=== PATIENT | male | born 1940 | race Caucasian/White ===

== ENCOUNTER 2018-05-24 17:26 | Inpatient (IN) | payer MEDICARE ==
[2018-05-24 18:22] LABS: #Lymphocytes 0.9 thou/uL (1.20-3.40); #Monocytes 0.1 thou/uL (0.11-0.59); #Neutrophils 1.1 thou/uL (1.40-6.50); %Basophils 1.3 % (0.0-1.0); %Eosinophils 2.1 % (0.0-10.0); %Lymphocytes 40.8 % (21.0-51.0); %Monocytes 3.8 % (0.0-10.0); %Neutrophils 52.1 % (42.0-75.0); Hemoglobin 9.6 g/dL (14.0-18.0); Mean Corpuscular HGB CONC 33.3 g/dL (32.0-36.0); Mean Corpuscular Hemoglobin 35.1 pg (27.0-31.0); Mean Platelet Volume 10.5 fL (7.4-10.4); Platelet Count 86 thou/uL (130-400); RBC Distribution Width 14.2 % (11.5-14.5); Red Blood Cell (RBC) Count 2.73 mill/uL (4.70-6.10); White Blood Cell (WBC) Count 2.2 thou/uL (4.8-10.8)
--- NOTE | 2018-05-24 18:23 | RAD ---
CHEST ONE VIEW 05/24/18 HISTORY: Cough. COMPARISON: Radiograph 01/16/18. FINDINGS: Heart size is enlarged. AICD/spacer is similar. Mild pulmonary venous congestion. No pneumothorax. IMPRESSION: Cardiomegaly with mild pulmonary venous congestion. POS: [facility]
[2018-05-24 18:38] LABS: ALT (SGPT) 50 U/L (8-55); AST (SGOT) 55 U/L (5-34); Albumin 3.2 g/dL (3.4-4.8); Alkaline Phosphatase 280 U/L (40-150); Anion Gap 14 mmol/L (10-20); BUN (Urea Nitrogen) 53 mg/dL (8.4-25.7); Bilirubin, Total 0.7 mg/dL (0.2-1.2); Calc. Creatinine Clearance 0 mL/min (70-130); Calcium 8.5 mg/dL (7.8-10.44); Carbon Dioxide 23 mmol/L (23-31); Chloride 104 mmol/L (98-107); Estimated GFR-MDRD 29; Globulin 2.3 g/dL (2.4-3.5); Glucose 143 mg/dL (83-110); Potassium 4.2 mmol/L (3.5-5.1); Protein, Total 5.5 g/dL (5.8-8.1); Sodium 137 mmol/L (136-145)
[2018-05-24 18:44] LABS: MDiff Complete? YES; Macrocytosis SLIGHT = 6-15 cells (100X) (0-5/hpf); Ovalocytes SLIGHT = 2-5 cells (100X) (0-1/hpf); Platelet Morphology Comment Appears Decreased; Polychromasia SLIGHT = 2-3 cells (100X) (0-2/hpf)
[2018-05-24 19:07] LABS: Bilirubin Negative (Negative); Blood, Urine Small (Negative); Clarity CLEAR (Clear); Glucose, Urine (Dipstick) Negative (Negative); Leukocyte Negative (Negative); Nitrite Negative (Negative); Protein, Urine (Dipstick) 300 mg/dL (Neg-Trace); Specific Gravity, Urine 1.016 (1.002-1.036); Urobilinogen 0.2 mg/dL (0.2-1.0); pH, Urine 5.5 (5.0-9.0)
[2018-05-24 19:10] LABS: Bacteria/HPF None Seen HPF (None Seen); Hyaline Casts/LPF 4-6 HYALINE CAST LPF (0-3 Hyaline); Pathc Cast-AUWi Flag 1.16 (0-2.49); Squamous Epithelial None Seen HPF (0-3); WBC/HPF 0-3 HPF (0-3)
--- NOTE | 2018-05-24 19:10 | CT ---
HEAD CT WITHOUT CONTRAST: 05/24/18 HISTORY: Weakness and altered mental status x3 days. Shortness of breath. Cough. Hypotension. COMPARISON: 10/04/16. FINDINGS: No parenchymal hemorrhage or extra-axial hematoma. No midline shift. Basilar cisterns are patent. Age appropriate brain volume. Cortical valera-white matter differentiation is preserved. No evidence of hydrocephalus. Minimal mucosal disease of the paranasal sinuses. Adequate mastoid air cell aeration. Intact calvarium. There is evidence of linear air attenuation in the soft tissues of the face and scalp, nonspecific. C orrelate for possible recent IV access. There is also nonspecific subcu air along the midline portion of the scalp and the soft tissues overlying the bridge of the nose. Correlate for possible soft tiss ue trauma. IMPRESSION: 1. No intracranial posttraumatic sequela. 2. Subcutaneous air as detailed above. Correlate for recent IV access versus trauma with associ ated laceration. POS: [facility]
[2018-05-24 19:15] LABS: CKMB 17.1 ng/mL (0-6.6)
--- NOTE | 2018-05-24 19:42 | PDOC.FPRHP ---
- History of Present Illness Chief Complaint: AMS & progressive weakness History of Present Illness: The patient is a 77YOM w/ a PMH significant for HTN, CHF, DMII, RA, and a fib who was brought to the ED by his due to progressively worsening weakness with associated confusion and hallucinations that began about 2 weeks ago. Per the patient's he has had increased weakness and fatigue for the last 2 weeks that has gotten significantly worse over the last 3-4 days. She reports that the patient has basically slept all day for the last few days and has had decreased PO intake as well. The patient reported that he has noticed that he has been unable to make his usual treck from the house to the garage to care for their dog without stopping and resting at least 5 times. The also reports that the patient has been periodically confused and periodically has visual hallucinations. The patient endorses that sometimes he is aware he is hallucinating and other times he is not. Lastly, the reports a cough that has gotten progressively worse over the last 2 weeks. The patient states it is non-productive but the says he is coughing more frequently now. The patient denied any fever/chills, recent hospitalizations, sick contacts, or chest pain. His also reports that he has received his flu and PNA vaccines but his Tdap is not up-to-date. ED Course: 3LNS, vancomycin, zosyn - Allergies/Adverse Reactions Allergies Allergy/AdvReac Type Severity Reaction Status Date / Time Sulfa (Sulfonamide Allergy Verified 05/24/18 21:36 Antibiotics) - Home Medications Medication Instructions Recorded Confirmed Type Furosemide [Lasix] 1 tab PO BID 08/10/14 05/24/18 History HumuLIN 70/30 [HumuLIN 70/30 Vial] 30 units SC QAM 08/10/14 05/24/18 History Multivitamin [Multivitamins] 1 tab PO DAILY 08/10/14 05/24/18 History [place]-3 Fatty Acids/Fish Oil [Fish 1 tab PO DAILY 08/10/14 05/24/18 History Oil 1,200 mg Softgel] Apixaban [Eliquis] 5 mg PO BID 05/27/15 05/24/18 History Carvedilol [Coreg] 12.5 mg PO BID-WM 10/04/16 05/24/18 History HumuLIN 70/30 [HumuLIN 70/30 Vial] 0 unit SC HS 10/04/16 05/24/18 History Aspirin [Ecotrin] 81 mg PO DAILY 05/24/18 05/24/18 History Gabapentin 300 mg PO TID 05/24/18 05/24/18 History Potassium Chloride 10 meq PO DAILY 05/24/18 05/24/18 History azaTHIOprine 50 mg PO BID 05/24/18 05/24/18 History predniSONE 2.5 mg PO QAM-WM 05/24/18 05/24/18 History - History PMHx: HTN, CHF, atrial fibrillation, DMII, RA, CM s/p defibrillator placement, CKD III PSHx: defibrillator placement, 3V CABG, left femur fracture repair, R shoulder arthroscopy FHx: Grandfather- CVA Grandmother- DMII Social: Lives at home with his . No tobacco, EtOH, or drug use. - Review of Systems General: reports: weight/appetite/sleep changes, fatigue. denies: fever/chills Eyes: denies: eye pain, vision changes ENT: reports: rhinorrhea, other (sore throat). denies: nasal congestion Respiratory: reports: cough, shortness of breath. denies: congestion Cardiovascular: reports: edema. denies: chest pain, palpitation Gastrointestinal: denies: nausea, vomiting, diarrhea, constipation, abdominal pain Genitourinary: denies: incontinence, dysuria Skin: denies: rashes, itching Musculoskeletal: reports: pain, arthritis/arthralgias Neurological: reports: numbness (in legs from neuropathy). denies: syncope Psychological: denies: anxiety, depression - Vital signs BP: 98/61 HR: 75 RR: 28 Tmax: 98F Pox: 99% on RA Wt: 76 kg - Physical Exam Constitutional: NAD, awake, alert and oriented (A&O x 2, oriented to person and place) HEENT: normocephalic and atraumatic, PERRLA, grossly normal vision, grossly normal hearing, oropharynx clear, other (conjunctival injection with yellow crusting around B/L eyes & slightly dry mucus membranes) Neck: supple, FROM Heart: RRR, normal S1/S2, no murmurs/rubs/gallops, pulses present, other (1+ pitting edema in LEs L>R) Lungs: no wheezing, no retractions, other (slightly tachypnic on exam & moving air well on inspiration, increased work on expiration w/ deep breaths) Abdomen: soft, non-tender, bowel sounds present Musculoskeletal: normal structure, ROM grossly normal Neurological: no focal deficit, CN II-XII intact Skin: no rash/lesions, no jaundice Heme/Lymphatic: no petechia, other (bruising on left arm) Psychiatric: normal mood and affect, good judgment and insight, other (slightly impaired recent and remote memory) FMR H&P: Results - Labs Result Diagrams: 05/24/18 17:42 05/24/18 17:42 Lab results: WBC 2.2 thou/uL (4.8-10.8) L 05/24/18 17:42 Hgb 9.6 g/dL (14.0-18.0) L 05/24/18 17:42 Hct 28.8 % (42.0-52.0) L 05/24/18 17:42 MCV 105.0 fL (78.0-98.0) H 05/24/18 17:42 Plt Count 86 thou/uL (130-400) L 05/24/18 17:42 Neutrophils % 52.1 % (42.0-75.0) 05/24/18 17:42 Sodium 137 mmol/L (136-145) 05/24/18 17:42 Potassium 4.2 mmol/L (3.5-5.1) 05/24/18 17:42 Chloride 104 mmol/L (98-107) 05/24/18 17:42 Carbon Dioxide 23 mmol/L (23-31) 05/24/18 17:42 BUN 53 mg/dL (8.4-25.7) H 05/24/18 17:42 Creatinine 2.20 mg/dL (0.7-1.3) H 05/24/18 17:42 Glucose 143 mg/dL (83-110) H 05/24/18 17:42 Lactic Acid 1.5 mmol/L (0.5-2.2) 05/24/18 17:42 Calcium 8.5 mg/dL (7.8-10.44) 05/24/18 17:42 Total Bilirubin 0.7 mg/dL (0.2-1.2) 05/24/18 17:42 AST 55 U/L (5-34) H 05/24/18 17:42 ALT 50 U/L (8-55) 05/24/18 17:42 Alkaline Phosphatase 280 U/L (40-150) H 05/24/18 17:42 CK-MB (CK-2) 17.1 ng/mL (0-6.6) H* 05/24/18 17:42 B-Natriuretic Peptide 2504.3 pg/mL (0-100) H 05/24/18 17:42 Serum Total Protein 5.5 g/dL (5.8-8.1) L 05/24/18 17:42 Albumin 3.2 g/dL (3.4-4.8) L 05/24/18 17:42 Urine Ketones Negative mg/dL (Negative) 05/24/18 18:24 Urine Blood Small (Negative) H 05/24/18 18:24 Urine Nitrite Negative (Negative) 05/24/18 18:24 Ur Leukocyte Esterase Negative (Negative) 05/24/18 18:24 Urine RBC 4-6 HPF (0-3) 05/24/18 18:24 Urine WBC 0-3 HPF (0-3) 05/24/18 18:24 Ur Squamous Epith Cells None Seen HPF (0-3) 05/24/18 18:24 Urine Bacteria None Seen HPF (None Seen) 05/24/18 18:24 FMR H&P: A/P - Problem List (1) Pancytopenia Current Visit: Yes Status: Acute Code(s): D61.818 - OTHER PANCYTOPENIA (2) Encephalopathy acute Current Visit: Yes Status: Acute Code(s): G93.40 - ENCEPHALOPATHY, UNSPECIFIED (3) CHF (congestive heart failure) Current Visit: Yes Status: Acute Code(s): I50.9 - HEART FAILURE, UNSPECIFIED (4) Atrial fibrillation Current Visit: No Status: Chronic Code(s): I48.91 - UNSPECIFIED ATRIAL FIBRILLATION (5) CAD (coronary artery disease) Current Visit: No Status: Chronic Code(s): I25.10 - ATHSCL HEART DISEASE OF [place] CORONARY ARTERY W/O ANG PCTRS (6) CKD (chronic kidney disease) Current Visit: No Status: Chronic Code(s): N18.9 - CHRONIC KIDNEY DISEASE, UNSPECIFIED (7) Diabetes mellitus Current Visit: No Status: Chronic Code(s): E11.9 - TYPE 2 DIABETES MELLITUS WITHOUT COMPLICATIONS (8) HTN (hypertension) Current Visit: No Status: Chronic Code(s): I10 - ESSENTIAL (PRIMARY) HYPERTENSION (9) Rheumatoid arthritis Current Visit: No Status: Chronic Code(s): M06.9 - RHEUMATOID ARTHRITIS, UNSPECIFIED - Plan Acute Encephalopathy - DDx includes sepsis/infection vs metabolic derangements vs delirium vs decreased cardiac output - Will check a TSH, UDS/SDS, B1, & folate - Infection workup pending including blood and urine cultures & flu swab. Will also trend procal & continue BS IV Abx for now & tailor PRN - Will give melatonin to help with sleep which may improve any delirium component Acute cough - CXR negative for any focal consolidation so PNA less likely at this stage; however, AZA definitely increases risk of developing an infection. - Will check procal to assess for likelihood of bacterial respiratory infection but continue IV abx in the meantime. Pancytopenia - Most likely related to azathioprine that the patient started ~ 1 month ago - Will hold AZA & continue to monitor. - Will hold anticoagulation for now per cards recs TERE on CKD stage III - Cr increased from labs obtained from 05/17. - likely related to volume depletion from decreased PO intake; will continue to trend w/ AM BMPs - Follows with [facility] Gregory outpatient for CKD stage 3 Elevated troponin - EKG does not suggest ischemia; will repeat EKG. - Likely 2/2 demand ischemia per cards. Will continue to trend. - Patient follows w/ Dr. Dos Santos who was consulted from the ED. Will see in the AM. CAD s/p 3V CABG - Per cards last cath 6 months ago showed diffuse disease but no surgical intervention done. - Wi;ll continue medical management. Rheumatoid arthritis - Aware, will hold azathioprine 2/2 pancytopenia. Diabetes Mellitus - Aware, patient on 70/30 at home. Will resume home regimen while in the hospital. - ACHS accuchecks & hypoglycemia protocol. Chronic diarrhea - Will consider stool studies. Dispo: Will admit to IMCU overnight for close monitoring of BP. Possibly transfer to floor tomorrow. LOS > 2 midnights. Diet: HH, CC Abx: Vancomycin, zosyn, levaquin DVT PPx: none (thrombocytopenia) GI PPx: none CODE STATUS: DNAR FMR H&P: Upper Level - Pertinent history oCrby Maynard is a 77 year old male on immunosuppresant medication who presents to the ED with 3 day history of confusion, cough/congestoin, and weakness and altered mental status. She is unable to identify any acute changes. No new sleep issues or changes in environment. Of note, patient started on Azathioprine 1 month ago for rheumatoid arthritis. Pt also reports diarrhea for the past several weeks. Dr. Dos Santos was consulted in the emergency department regarding pt's elevated troponin and per ED physician, Dr. Dos Santos believes this is more likely related to troponin leak and recommended treating presumptive sepsis. In ED, pt was noted to be hypotensives to 70s which improved after 3L NS. He was started on Vanc and Zosyn. Blood and urine cultures were obtained. - Pertinent findings Exam: General - Alert and oriented to person and place Heart - regular rate and rhythm, no murmurs, rubs, or gallops. Lungs - clear to auscultation bilaterally. Abdomen - soft, non-tender Extremities - bilateral lower extremity 1 + pitting edema. Neuro: CN II-XII intact grossly; no focal sensory or motor deficits; Normal ham stringer strenght; No dysdiadokinesiss Labs as above. - Plan Date/Time: 05/24/181941 IMalou, have evaluated this patient and agree with findings/plan as outlined by consultant internship resident. Pertinent changes/additions are listed here. Acute Encephalopathy - differentials include: infection, metabolic derangement, delirium, decreased cardiac output. - will check TSH, UDS/SDS, B1, folate - infection workup pending: including cultures, flu, procal. Acute cough - unlikely pneumonia, given negative CXR, Will check procal to assess for likelihood of bacterial respiratory infection Pancytopenia - likely related to azathioprine. - mild leukopenia with ANC of 1146. - with thrombocytopenia, no evidence of bleeding, will continue to monitor. Acute on chronic kidney injury - Cr. increased from labs obtained from 05/17. - likely related to volume depletion; will repeat BMP in Am. - Pt sees Justin Gregory outpatient for CKD stage 3 Elevated troponin -EKG does not suggest ischemia; will repeat EKG. -will trend troponins - cardiology consulted. Coronary artery disease - s/p CABG; diffuse disease - continue medical management. Congestive heart failure. -will continue home meds. - fluid restriction, HH diet - Pt's states that he had a normal Echo in 01/2018. Rheumatoid arthritis - will hold azathioprine. Diabetes Mellitus - resume home regimen - Will check A1C. Chronic diarrhea - consider stool studies. Addendum - Attending - Attending Attestation Date/Time: 05/24/18 2263 I personally evaluated the patient and discussed the management with Dr. Clinton/ Lashawn. I agree with the History, Examination, Assessment and Plan documented above with any addition or exceptions noted below. Patient with history of RA currently on immunosuppression here with several weeks of increasing fatigue, weakness, and malaise. Family also reports some intermittent confusion and hallucinations. He also reports cough and rhinorrhea , but denies increased shortness of breath, productive sputum, abdominal pain, nausea, vomiting, diarrhea. He does endorse some R shoulder pain which has been ongoing for the last few weeks. On exam, patient initially hypotensive but improved with 3L of IVF. Currently, MAP in 70s. He is not tachycardic. He is noted to have cough but otherwise lungs are clear. Exam non focal. Labs show increased troponin thought secondary to troponin leak and demand ischemia (per Cardiology consult from ER). Lactic acid normal. He is borderline pancytopenic, and no leukocytosis or neutrophilia. CXR does not reveal major consolidation or infiltrate, possibly mild congestion. CT brain nothing acute. Patient will be admitted to IMCU overnight for hypotension with concern for sepsis. Check PCT and trend. Start on broad spectrum abx and await culture results. Flu swab. He has been well fluid resuscitation but monitor with I/O and renal values. Patient is DNAR as discussed with patient and family. Further mgmt per clinical course.
[2018-05-24] MEDS ORDERED: Piperacillin/Tazobactam 4.5 GM VIAL ONE (20:29)
[2018-05-24] MEDS ORDERED: Dextrose 5% in Water 1,000 ML IV PRN (20:33)
[2018-05-24] MEDS ORDERED: Dextrose 50% Abboject 50 ML SYRINGE SLOW IVP PRN (20:33)
[2018-05-24] MEDS ORDERED: Ondansetron ODT 4 MG TAB PO PRN (20:33)
[2018-05-24 21:07] LABS: Critical Call Chem Troponin I DECREASED
[2018-05-25 00:35] LABS: Acetaminophen Less than 6.0 mcg/mL (10.0-30.0); Alcohol Less than 10 mg/dL (Less than 10); Salicylate Less than 8.0 mg/dL (15.0-30.0)
[2018-05-25 01:13] LABS: CKMB 12.8 ng/mL (0-6.6); Critical Call CKMB RESULT DECREASING
[2018-05-25] MEDS: Piperacillin/Tazobactam 2.25 GM in Sodium Chloride 0.9% 100 ML IVPB SCH ×5 (01:20→23:20)
[2018-05-25] MEDS: Melatonin 3 MG TAB PO PRN ×2 (01:50→21:10)
[2018-05-25 02:43] LABS: Amphetamine Not Detected (NotDetected); Barbiturates Screen Not Detected (NotDetected); Benzodiazepine Screen Not Detected (NotDetected); Cocaine Metabolite Screen Not Detected (NotDetected); Medtox Control Line Valid? VALID (VALID); Medtox Reader # READER 1; Methadone Not Detected (NotDetected); Methamphetamine Not Detected (NotDetected); Opiate Screen Not Detected (NotDetected); Oxycodone Screen Not Detected (NotDetected); Phencyclidine (PCP) Not Detected (NotDetected); THC/Cannabinoid Screen Not Detected (NotDetected); Tricyclic Screen Not Detected (NotDetected)
[2018-05-25 04:16] LABS: #Monocytes 0.2 thou/uL (0.11-0.59); #Neutrophils 1.2 thou/uL (1.40-6.50); %Basophils 0.3 % (0.0-1.0); %Lymphocytes 39.8 % (21.0-51.0); %Monocytes 8.2 % (0.0-10.0); %Neutrophils 49.7 % (42.0-75.0); Mean Corpuscular HGB CONC 33.4 g/dL (32.0-36.0); Mean Corpuscular Hemoglobin 35.3 pg (27.0-31.0); Platelet Count 81 thou/uL (130-400); RBC Distribution Width 14.3 % (11.5-14.5); Red Blood Cell (RBC) Count 2.55 mill/uL (4.70-6.10); White Blood Cell (WBC) Count 2.5 thou/uL (4.8-10.8)
[2018-05-25 04:29] LABS: Anion Gap 15 mmol/L (10-20); BUN (Urea Nitrogen) 53 mg/dL (8.4-25.7); Calc. Creatinine Clearance 28 mL/min (70-130); Calcium 8.2 mg/dL (7.8-10.44); Carbon Dioxide 22 mmol/L (23-31); Chloride 106 mmol/L (98-107); Estimated GFR-MDRD 27; Glucose 177 mg/dL (83-110); Potassium 4.1 mmol/L (3.5-5.1); Sodium 139 mmol/L (136-145)
[2018-05-25 05:37] LABS: Folate (Folic Acid) 16.8 ng/mL (7.0-31.4)
--- NOTE | 2018-05-25 07:33 | PDOC.FM ---
- Subjective Subjective: A&Ox1 today, thinks he's in [facility] and the year is 2000. He denies sx. states he's had sx of confusion since before Miguelina. States he's been sleeping more the past week. States he's had visual hallucinations since before Miguelina as well. VSS. Afebrile. - Objective Vital Signs & Weight: Vital Signs (12 hours) Temp Resp Pulse Ox 05/25/18 04:00 20 05/25/18 03:47 99.0 F 05/25/18 00:00 20 05/24/18 23:35 99.8 F H 05/24/18 23:00 18 05/24/18 21:30 98 05/24/18 21:04 20 05/24/18 21:00 98.3 F Weight Weight 76.26 kg Most Recent Monitor Data Heart Rate from ECG 81 NIBP 111/65 NIBP BP-Mean 80 Respiration from ECG 25 SpO2 98 I&O: 05/24/18 05/25/18 05/26/18 06:59 06:59 06:59 Intake Total 740 Output Total 125 Balance 615 Result Diagrams: 05/25/18 03:20 05/25/18 03:20 Phys Exam - Physical Examination Constitutional: NAD Respiratory: no wheezing, no rales, clear to auscultation bilateral decreased breath sounds bilaterally Cardiovascular: no significant murmur Gastrointestinal: soft, non-tender Musculoskeletal: no edema, pulses present Neurological: non-focal, normal sensation Deviation from normal: a&ox1 Skin: no rash Dx/Plan (1) CHF (congestive heart failure) Code(s): I50.9 - HEART FAILURE, UNSPECIFIED Status: Acute (2) Encephalopathy acute Code(s): G93.40 - ENCEPHALOPATHY, UNSPECIFIED Status: Acute (3) Pancytopenia Code(s): D61.818 - OTHER PANCYTOPENIA Status: Acute (4) Atrial fibrillation Code(s): I48.91 - UNSPECIFIED ATRIAL FIBRILLATION Status: Chronic (5) CAD (coronary artery disease) Code(s): I25.10 - ATHSCL HEART DISEASE OF [place] CORONARY ARTERY W/O ANG PCTRS Status: Chronic (6) CKD (chronic kidney disease) Code(s): N18.9 - CHRONIC KIDNEY DISEASE, UNSPECIFIED Status: Chronic (7) Diabetes mellitus Code(s): E11.9 - TYPE 2 DIABETES MELLITUS WITHOUT COMPLICATIONS Status: Chronic (8) HTN (hypertension) Code(s): I10 - ESSENTIAL (PRIMARY) HYPERTENSION Status: Chronic (9) Rheumatoid arthritis Code(s): M06.9 - RHEUMATOID ARTHRITIS, UNSPECIFIED Status: Chronic (10) Hypokalemia Code(s): E87.6 - HYPOKALEMIA Status: Resolved - Plan Plan: Acute on chronic Encephalopathy -Sx for several months of confusion and VH, acute decline more recently -DDX: Dementia (vascular vs parkinsons vs alz) vs infection (although cannot find a source) vs acute on chronic CHF/hypoxemia Sepsis without a source- -Will continue vanc and zosyn until cx negative X48 hours Hypotension- -hypotension resolved, likely chronic low nl bp 2/2 cardiogenic etiology (hx of CABG 3V and CHF) NSTEMI 2/2 demand ischemia- -elevated trops and CK-MB X 3, cards on board -will follow recs -no chest pain -consider repeating EKG -lovenox not started as pt is thrombocytopenic Acute cough - CXR negative for any focal consolidation so PNA less likely at this stage; however, AZA definitely increases risk of developing an infection. - Continue to hold AZA, and will recheck procal Pancytopenia - Most likely related to azathioprine that the patient started ~ 1 month ago - Will hold AZA & continue to monitor. - Will hold anticoagulation for now per cards recs TERE on CKD stage III - Cr increased from labs obtained from 05/17. - likely related to volume depletion from decreased PO intake; will continue to trend w/ AM BMPs - Follows with [facility] Gregory outpatient for CKD stage 3 - will provide low maintenance fluids as TERE slightly worse this am (100 ml/hr LR) CAD s/p 3V CABG - Per cards last cath 6 months ago showed diffuse disease but no surgical intervention done. - Wi;ll continue medical management. Rheumatoid arthritis - Aware, will hold azathioprine 2/2 pancytopenia. Diabetes Mellitus - Aware, patient on 70/30 at home. Will resume home regimen while in the hospital. - ACHS accuchecks & hypoglycemia protocol. Chronic diarrhea - Will consider stool studies. Dispo: Will admit to IMCU overnight for close monitoring of BP. Possibly transfer to floor tomorrow. LOS > 2 midnights. Diet: HH, CC Abx: Vancomycin, zosyn DVT PPx: none (thrombocytopenia) GI PPx: none CODE STATUS: DNAR Addendum - Attending - Attending Attestation Date/Time: 05/25/18 0899 I personally evaluated the patient and discussed the management with Dr. Clark Mills. I agree with the History, Examination, Assessment and Plan documented above with any addition or exceptions noted below. Patient here with hypotension and concern for sepsis. He is doing better this morning. Reports feeling much better. Denies complaints. He is on broad spectrum abx and IVF. Cultures pending. Labs stable. His PCT did uptrend a little, continue to monitor. Consider xfer out of IMCU if BP stable through the AM. His trops are pretty significantly elevated, suspect demand ischemia and troponin leak, as does cardiology. They have been consulted but anticipate mgmt of his BP over more invasive studies. No chest pain and no EKG changes. History of CAD. Consider AM cortisol level for the AM. Other labs stable, will continue current mgmt for now.
[2018-05-25] MEDS ORDERED: HumuLIN 70/30 (300 UNITS/3 ML VIAL) SC SCH ×2 (09:00→21:00)
[2018-05-25] MEDS ORDERED: Lactated Ringer's 1,000 ML IV SCH (09:45)
[2018-05-25] MEDS: Aspirin 81 mg Enteric Coated Tablet PO SCH (10:07)
[2018-05-25] MEDS: predniSONE 5 MG TAB PO SCH (10:07)
[2018-05-25] MEDS: Fish Oil 1,000 MG CAP PO SCH (10:07)
[2018-05-25] MEDS: Gabapentin 300 MG CAP PO SCH ×3 (10:07→21:10)
[2018-05-25] MEDS: Potassium Chloride 10 MEQ TAB PO SCH (10:08)
[2018-05-25] MEDS: Multivitamin W/ Minerals 1 TAB PO SCH (10:08)
--- NOTE | 2018-05-25 11:32 | CON ---
DATE OF CONSULTATION: 05/25/2018 REASON FOR CONSULTATION: IMCU management. HISTORY OF PRESENT ILLNESS: The patient is a 77-year-old male, who was brought in yesterday from home with a month long history of altered mental status and progressive weakness. The patient is basically unable to provide history and his also is very sketchy with the history. According to history and physical, the patient has been sleeping all day long for the last several days. He has become weak when walking. He has had a cough and some congestion. PAST MEDICAL HISTORY: 1. Hypertension. 2. Congestive heart failure, systolic. 3. Atrial fibrillation. 4. Diabetes mellitus, type 2. 5. Rheumatoid arthritis, on immunosuppression. 6. Defibrillator placement. 7. Chronic kidney disease. PAST SURGICAL HISTORY: 1. Three-vessel CABG. 2. Left femur fracture repair. 3. Right shoulder arthroscopy. FAMILY MEDICAL HISTORY: Remarkable for stroke and diabetes mellitus. SOCIAL HISTORY: Nonsmoker. Does not consume alcohol. Does not use illicit drugs. MEDICATIONS: Prior to admission, these were reviewed and doses are listed on the chart. Of note, he is on: 1. Aspirin. 2. Humulin 70/30 insulin. 3. Prednisone. 4. Azathioprine. 5. Potassium chloride. 6. [place]-3 fatty acids. 7. Multivitamin. 8. Gabapentin. 9. Furosemide. 10. Carvedilol. 11. Eliquis. His current inpatient medications include those with the exception that the azathioprine is being held and he is now receiving some antibiotic therapy. ALLERGIES: SULFA DRUGS. REVIEW OF SYSTEMS: Cannot be obtained secondary to the patient's altered mental status. PHYSICAL EXAMINATION: VITAL SIGNS: Temperature is 99.2 with a T-max of 99.8, pulse 79, blood pressure 108/63, and O2 saturation 94% on room air. GENERAL: He is lying in bed, in no distress. He is alert, not oriented to place or time, but is pleasant. HEENT: Pupils are reactive. Sclerae anicteric. Oropharynx clear. NECK: No adenopathy. No JVD. CARDIOVASCULAR: S1 and S2 irregularly irregular with a controlled rate. LUNGS: He has inspiratory crackles in the left base. ABDOMEN: Soft, nontender, and nondistended. EXTREMITIES: No clubbing, cyanosis, or edema. NEUROLOGIC: Nonfocal. SKIN: Various bruises over his arms. LABORATORY DATA: Sodium 139, potassium 4.1, chloride 106, CO2 of 22, BUN 53, creatinine 2.3, and glucose 177. White blood cell count 2.5, hemoglobin 9, hematocrit 26.9, and platelet count 81. His BNP level was elevated at 2504. His procalcitonin level was 0.7. IMAGING STUDIES: His chest x-ray demonstrates cardiomegaly. There is a left- sided defibrillator in place. I do not see any infiltrates on the x-ray. ASSESSMENT: The patient is presenting with altered mental status. Most common scenario here would be sepsis leading to this. Cannot rule out the possibility of concurrent systolic heart failure, although he looks clinically dry on his labs. RECOMMENDATIONS: 1. I agree with antibiotics. 2. Consider very judicious use of IV fluids as it could tip him over to heart failure. 3. Dr. Dos Santos has been consulted. 4. I would be happy to follow along with you. 70 min time was spent on this consultation. Of that time, greater than 50% was spent with the patient and/or on the patient's unit in the hospital. Job ID: [id number] [id number]
--- NOTE | 2018-05-25 12:21 | CON ---
DATE OF CONSULTATION: 05/25/2018 REASON FOR CONSULTATION: Elevated troponins. HISTORY OF PRESENT ILLNESS: Mr. Maynard is a very pleasant 77-year-old white gentleman, very well known to myself, who comes to the hospital for altered mental status and progressive weakness. He was brought in for this by his , and on initial evaluation, was found to have an elevated troponin, so Cardiology is being consulted for this. He denies any chest pain, tightness, or pressure. tells me he has not been having any chest pains either. He is still somewhat confused. No significant improvement has occurred since last night. He was hypotensive when he came in. He responded well to IV fluids. He does have a history of ischemic cardiomyopathy, previous bypass and most recent heart catheterization showed nonrevascularizable coronary artery disease. has noted some cough and congestion over last two weeks. PAST MEDICAL HISTORY: 1. Hypertension. 2. Ischemic cardiomyopathy with an EF at about 30% to 35%. 3. Paroxysmal atrial fibrillation. 4. Type 2 diabetes. 5. Rheumatoid arthritis. 6. AICD placement. 7. Chronic kidney disease. PAST SURGICAL HISTORY: 1. Three-vessel CABG. 2. Pacemaker placement, later upgrade to an AICD. 3. Left femur fracture repair. 4. Left shoulder repair. FAMILY HISTORY: Noncontributory. SOCIAL HISTORY: No alcohol, tobacco, or drugs. OUTPATIENT MEDICATIONS: Include 1. Aspirin. 2. Humulin insulin. 3. Prednisone. 4. Azathioprine, which is a new medicine for the last month. 5. Potassium chloride. 6. Wolverine-3 fish oil. 7. Multivitamins. 8. Gabapentin. 9. Furosemide. 10. Carvedilol. 11. Eliquis. ALLERGIES: SULFA DRUGS. REVIEW OF SYSTEMS: Unobtainable as the patient is altered still. PHYSICAL EXAMINATION: VITAL SIGNS: Temperature 99.2, pulse 79, respiratory rate 18, saturating 98% on room air, and blood pressure 108/63. GENERAL: Awake, alert, and oriented to person only, in no distress. HEENT: Normocephalic and atraumatic. NECK: Supple. LUNGS: Clear. CARDIOVASCULAR: S1 and S2. No S3 or S4. No murmurs. ABDOMEN: Soft. Positive bowel sounds. EXTREMITIES: No edema. SKIN: Warm and dry. LABORATORY DATA: Laboratory work was reviewed. CBC with a white count of 2.2, hemoglobin 9.6, hematocrit of 28, and platelet count of 86. Chemistry with BUN of 53, creatinine 2.3, troponin went from 18 down to 15, down to 13. BNP was 2504. TSH was normal. UA was unremarkable. Toxicology was negative. Influenza A and B were negative. Blood cultures negative to date. ASSESSMENT: 1. Altered mental status. 2. [id number] myocardial infarction. Likely demand ischemia from severe cardiomyopathy and severe coronary artery disease and his hypotension. Treat underlying condition. Blood pressure is better. He remains asymptomatic. 3. Pancytopenia. PLAN: 1. I would stop his IV fluids for now. He may have been a little volume down initially, but currently he is closer to euvolemic. We will stop IV fluids. I agree with IV antibiotics. 2. Agree with holding the azathioprine. 3. I would stay away from any medications that may alter mentation. 4. No plan for catheterization as he has nonrevascularizable coronary artery disease. 5. We will follow. Job ID: [id number]
[2018-05-25] MEDS: Vancomycin HCl 750 MG in Sodium Chloride 0.9% 250 ML 250 ML IVPB SCH (21:16)
[2018-05-26] MEDS: Piperacillin/Tazobactam 2.25 GM in Sodium Chloride 0.9% 100 ML IVPB SCH ×4 (05:57→23:41)
--- NOTE | 2018-05-26 06:50 | PDOC.FM ---
- Subjective Subjective: Hypoglycemic 58 this am, recheck 83 when I was in the room. He was not alert and oriented when I saw him. A&0x0. GCS 9 - Objective MAR Reviewed: Yes Vital Signs & Weight: Vital Signs (12 hours) Temp Pulse Ox 05/26/18 00:09 97.9 F 05/26/18 00:00 96 05/25/18 20:00 94 L 05/25/18 19:26 98.2 F Weight Weight 78.5 kg Most Recent Monitor Data Heart Rate from ECG 67 NIBP 125/63 NIBP BP-Mean 83 Respiration from ECG 22 SpO2 95 I&O: 05/24/18 05/25/18 05/26/18 06:59 06:59 06:59 Intake Total 740 1120 Output Total 125 150 Balance 615 970 Result Diagrams: 05/25/18 03:20 05/26/18 04:56 Phys Exam - Physical Examination A&O X 0; GCS 9 Respiratory: no wheezing rales; tachypnic Cardiovascular: RRR systolic murmur Gastrointestinal: soft, non-tender Musculoskeletal: no edema GCS9 Dx/Plan (1) NSTEMI (non-ST elevated myocardial infarction) Code(s): I21.4 - NON-ST ELEVATION (NSTEMI) MYOCARDIAL INFARCTION Status: Acute (2) Sepsis Code(s): A41.9 - SEPSIS, UNSPECIFIED ORGANISM Status: Acute Qualifiers: Sepsis type: methicillin resistant Staphylococcus aureus Qualified Code(s) : A41.02 - Sepsis due to Methicillin resistant Staphylococcus aureus (3) CHF (congestive heart failure) Code(s): I50.9 - HEART FAILURE, UNSPECIFIED Status: Acute (4) Encephalopathy acute Code(s): G93.40 - ENCEPHALOPATHY, UNSPECIFIED Status: Acute (5) Pancytopenia Code(s): D61.818 - OTHER PANCYTOPENIA Status: Acute (6) Atrial fibrillation Code(s): I48.91 - UNSPECIFIED ATRIAL FIBRILLATION Status: Chronic (7) CAD (coronary artery disease) Code(s): I25.10 - ATHSCL HEART DISEASE OF [place] CORONARY ARTERY W/O ANG PCTRS Status: Chronic (8) CKD (chronic kidney disease) Code(s): N18.9 - CHRONIC KIDNEY DISEASE, UNSPECIFIED Status: Chronic (9) Diabetes mellitus Code(s): E11.9 - TYPE 2 DIABETES MELLITUS WITHOUT COMPLICATIONS Status: Chronic (10) HTN (hypertension) Code(s): I10 - ESSENTIAL (PRIMARY) HYPERTENSION Status: Chronic (11) Rheumatoid arthritis Code(s): M06.9 - RHEUMATOID ARTHRITIS, UNSPECIFIED Status: Chronic - Plan Plan: 77 yo m with HFrEF presents with AMS, admitted for hypotension thought to be d/ t sepsis without a source, as well as an NSTEMI 2/2 demand ischemia and acute on chronic encephalopathy. Hosp day # 2 Acute on chronic Encephalopathy -altered mentation this morning, GCS9 -a&Ox0 this morning; one episode of hypoglycemia, resolved, recheck 83 -ordered abg, cxr, EKG, trops -Sx for several months of confusion and VH, acute decline more recently -DDX: Delerium vs Dementia (vascular vs parkinsons vs alz) vs infection ( although cannot find a source) vs acute on chronic CHF/hypoxemia Sepsis without a source- -Will continue vanc and zosyn until cx negative X48 hours Hypotension- -hypotension resolved, likely chronic low nl bp 2/2 cardiogenic etiology (hx of CABG 3V and CHF) NSTEMI 2/2 demand ischemia- -repeated EKG and trops this morning; pt altered this morning -elevated trops and CK-MB X 3 on admission, cards on board -will follow recs -lovenox not started as pt is thrombocytopenic Acute cough -repeat cxr today, rales on exam this morning, which could be related to HFrEF vs PNA; pt has been afebrile and normal wbc, however increased RR this am to upper 20s, saturating upper 90s on RA, mildly tachypnic - initial CXR negative for any focal consolidation so PNA less likely however, AZA definitely increases risk of developing an infection. - Continue to hold AZA, and will recheck procal Pancytopenia - Most likely related to azathioprine that the patient started ~ 1 month ago - Will hold AZA & continue to monitor. - Will hold anticoagulation for now per cards recs TERE on CKD stage III - Cr increased from labs obtained from 05/17. - likely related to volume depletion from decreased PO intake; will continue to trend w/ AM BMPs - Follows with [facility] outpatient for CKD stage 3 - will provide low maintenance fluids as TERE slightly worse this am (100 ml/hr LR) CAD s/p 3V CABG - Per cards last cath 6 months ago showed diffuse disease but no surgical intervention done. - Will continue medical management. Rheumatoid arthritis - Aware, will hold azathioprine 2/2 pancytopenia. Diabetes Mellitus - Aware, patient on 70/30 at home. Held nighttime dose of 70/30; will decrease am dose to 25 - ACHS accuchecks & hypoglycemia protocol. Chronic diarrhea - Will consider stool studies. Dispo: Will admit to IMCU overnight for close monitoring of BP. Possibly transfer to floor tomorrow. LOS > 2 midnights. Diet: HH, CC Abx: Vancomycin, zosyn DVT PPx: none (thrombocytopenia) GI PPx: none CODE STATUS: DNAR Addendum - Attending - Attending Attestation Date/Time: 05/26/18 5098 I personally evaluated the patient and discussed the management with Dr. Graff. I agree with the History, Examination, Assessment and Plan documented above with any addition or exceptions noted below. Patient doing well. No further episodes of hypotension. Continue broad spectrum abx and await cultures. Likely can transfer from [facility]. PCT downtrending. Renal function stable.
[2018-05-26 07:30] LABS: Anion Gap 16 mmol/L (10-20); BUN (Urea Nitrogen) 58 mg/dL (8.4-25.7); Calc. Creatinine Clearance 29 mL/min (70-130); Calcium 8.3 mg/dL (7.8-10.44); Carbon Dioxide 19 mmol/L (23-31); Chloride 108 mmol/L (98-107); Estimated GFR-MDRD 27; Glucose 60 mg/dL (83-110); Potassium 3.7 mmol/L (3.5-5.1); Sodium 139 mmol/L (136-145)
[2018-05-26 08:29] LABS: Actual Bicarbonate (HCO3a) 18.4 mEq/L (22-28); Base Excess (BEa) -5.8 mEq/L (-2.0 to +3.0); CO2 Tension 31.6 mmHg (35.0-45.0); Calcium, Ionized 1.13 mmol/L (1.12-1.30); Carboxyhemoglobin (COHb) 0.8 gm% (0.0-3.0); Hemoglobin (Hb) 10.1 g/dL (14.0-18.0); O2 Tension (PaO2) 90.9 mmHg (> 70.0); Potassium - ABG Lab 3.45 mmol/L (3.70-5.30); pH, Arterial 7.38 (7.35-7.45)
[2018-05-26 08:31] LABS: Puncture Site L.R.
[2018-05-26 08:34] LABS: #Eosinphils 0.2 thou/uL (0.0-0.7); #Lymphocytes 1.6 thou/uL (1.20-3.40); #Monocytes 0.2 thou/uL (0.11-0.59); #Neutrophils 1.6 thou/uL (1.40-6.50); %Basophils 0.7 % (0.0-1.0); %Eosinophils 6.6 % (0.0-10.0); %Lymphocytes 43.2 % (21.0-51.0); %Monocytes 5.7 % (0.0-10.0); %Neutrophils 43.9 % (42.0-75.0); Hemoglobin 10.2 g/dL (14.0-18.0); Mean Corpuscular HGB CONC 32.7 g/dL (32.0-36.0); Mean Corpuscular Hemoglobin 35.1 pg (27.0-31.0); Mean Platelet Volume 10.1 fL (7.4-10.4); Platelet Count 124 thou/uL (130-400); RBC Distribution Width 14.2 % (11.5-14.5); White Blood Cell (WBC) Count 3.7 thou/uL (4.8-10.8)
[2018-05-26 08:59] LABS: Acetaminophen Less than 6.0 mcg/mL (10.0-30.0); Alcohol Less than 10 mg/dL (Less than 10); Salicylate Less than 8.0 mg/dL (15.0-30.0)
[2018-05-26 09:49] LABS: Critical Call Chem Troponin I RESULT DECREASING
[2018-05-26] MEDS: Fish Oil 1,000 MG CAP PO SCH (10:02)
[2018-05-26] MEDS: predniSONE 5 MG TAB PO SCH (10:02)
[2018-05-26] MEDS: Gabapentin 300 MG CAP PO SCH ×3 (10:02→20:33)
[2018-05-26] MEDS: Aspirin 81 mg Enteric Coated Tablet PO SCH (10:03)
[2018-05-26] MEDS: Potassium Chloride 10 MEQ TAB PO SCH (10:03)
[2018-05-26] MEDS: Multivitamin W/ Minerals 1 TAB PO SCH (10:03)
[2018-05-26] MEDS: HumuLIN 70/30 (300 UNITS/3 ML VIAL) SC SCH (10:04)
[2018-05-26 10:09] LABS: CKMB 8.7 ng/mL (0-6.6); Critical Call CKMB RESULT DECREASING
--- NOTE | 2018-05-26 10:27 | PRG ---
DATE OF SERVICE: 05/26/2018 SUBJECTIVE: The patient had a spell of altered mental status this morning, which looks like it is probably secondary to hypoglycemia. He is now awake, fairly alert, and eating breakfast. OBJECTIVE: VITAL SIGNS: On exam, his temperature is 97.9, pulse 72, blood pressure 113/62, and O2 saturation 97% on nasal cannula. HEENT: Unremarkable. NECK: No JVD. CHEST: Clear to auscultation. CARDIAC: S1 and S2. Regular. ABDOMEN: Soft. EXTREMITIES: No edema. LABORATORY DATA: Sodium 139, potassium 3.7, chloride 108, CO2 of 19, BUN 58, creatinine 2.4, and glucose was 60. Troponin 7.1. White count 3.7, hematocrit 31, and platelet count 124. A pH of 7.3, pCO2 of 31, and pO2 of 91. ASSESSMENT: 1. Non-Q myocardial infarction. 2. Altered mental status that may have been precipitated by hypoglycemia. 3. Pancytopenia with improved platelet count overnight. PLAN: 1. Continue the antibiotics for presumed sepsis. 2. Would avoid hypoglycemia as much as possible. 3. We will follow. Job ID: [id number]
--- NOTE | 2018-05-26 10:29 | RAD ---
FRONTAL RADIOGRAPH CHEST: DATE: 05/26/2018. COMPARISON: 05/24/2018. HISTORY: Crackles. FINDINGS: There is elevation of the right hemidiaphragm limiting assessment of the right lung base. Midline st ernotomy wires are noted. There is a dual-lead transvenous AICD. There is mild pulmonary vascular p rominence. There is no focal consolidation or alveolar edema. IMPRESSION: Elevated right hemidiaphragm. No lobar consolidation or alveolar edema. If symptoms persist, PA and lateral imaging of the chest is advised. POS: SELWYN
--- NOTE | 2018-05-26 12:42 | PDOC.CTH ---
Cardiology Progress Note - Subjective Had an episode of worsening confusion this morning likely from low blood sugars. - Objective Vital Signs Pulse Ox 05/26/18 07:19 95 Weight 173 lb 1 oz 05/25/18 05/26/18 05/27/18 06:59 06:59 06:59 Intake Total 740 1120 Output Total 125 150 Balance 615 970 - Physical Examination General/Neuro: NAD, other: (AA O x [address] ) Neck: no JVD present Lungs: unlabored respirations Heart: other: (Irreg irreg) Abdomen: NT/ND Extremities: other: (no edema) - Telemetry Telemetry Rhythm: Afib HR 80's, - Labs Result Diagrams: 05/26/18 07:24 05/26/18 04:56 Troponin/CKMB CK-MB (CK-2) 8.7 ng/mL (0-6.6) H* 05/26/18 07:24 Troponin I 7.165 ng/mL (< 0.028) H* 05/26/18 07:24 - Assessment/Plan 1. AMS 2. NSTEMI 3. Severe diffuse CAD. 4. S/P CABG 5. S/P AICD 6. Hx of VT thought to be related to ischemic CM and hypokalemia. PLAN: - LHC in Apr 2016 showed occluded SVG to RCA and occluded SVG to OM. His [place] RCA is occluded and his [place] LCx was 99% stenosed. His LEE to LAD was patent but landed on a diffusely diseased LAD with severe distal disease. No revascularization options. - AMS this morning likely form hypoglycemia. - Unclear as to cause of overall Altered mentation would be but my suspicion is he has some viral URI. - Continue to monitor closely in IMCU.
[2018-05-26] MEDS: HumaLOG 300 UNITS/3 ML VIAL SC PRN ×2 (16:49→20:35)
[2018-05-26 20:34] LABS: Vancomycin, Trough 13.6 ug/mL
[2018-05-26] MEDS: Vancomycin HCl 750 MG in Sodium Chloride 0.9% 250 ML 250 ML IVPB SCH (21:02)
[2018-05-27] MEDS ORDERED: Haloperidol Lactate 5 MG/ML VIAL ONE (01:13)
[2018-05-27] MEDS: Piperacillin/Tazobactam 2.25 GM in Sodium Chloride 0.9% 100 ML IVPB SCH ×4 (05:59→23:37)
[2018-05-27 07:18] LABS: Hemoglobin 9.9 g/dL (14.0-18.0); Mean Corpuscular HGB CONC 30.9 g/dL (32.0-36.0); Mean Corpuscular Hemoglobin 31.7 pg (27.0-31.0); Mean Platelet Volume 9.5 fL (7.4-10.4); Platelet Count 120 thou/uL (130-400); RBC Distribution Width 14.8 % (11.5-14.5); Red Blood Cell (RBC) Count 3.14 mill/uL (4.70-6.10)
[2018-05-27 07:23] LABS: Anion Gap 18 mmol/L (10-20); BUN (Urea Nitrogen) 58 mg/dL (8.4-25.7); Calc. Creatinine Clearance 28 mL/min (70-130); Calcium 8.2 mg/dL (7.8-10.44); Carbon Dioxide 17 mmol/L (23-31); Chloride 107 mmol/L (98-107); Estimated GFR-MDRD 26; Glucose 198 mg/dL (83-110); Sodium 138 mmol/L (136-145)
[2018-05-27 08:23] LABS: Band 15 % (5-11); Bite Cells SLIGHT = 2-5 cells (100X) (0-1/hpf); Eosinophils 5 % (0-10); Hypochromia SLIGHT = 6-15 cells (100X) (0-5/hpf); Lymphocytes 38 % (21-51); MDiff Complete? YES; Metamyelocyte 2 % (0-0); Monocytes 5 % (0-10); Neutrophil 35 % (42-75); Nucleated RBC 1 % (0); Platelet Morphology Comment Appears Decreased; Polychromasia MODERATE = 3-4 cells (100X) (0-2/hpf); Schistocytes SLIGHT = 2-5 cells (100X) (0-1/hpf)
--- NOTE | 2018-05-27 08:35 | PDOC.FM ---
- Subjective Subjective: Seen at bedside this morning, resting comfortably. Over night patient became agitated and needed Haldol to sleep. Patient is currently interactive and calm. No new complaints. - Objective MAR Reviewed: Yes Vital Signs & Weight: Vital Signs (12 hours) Temp 05/27/18 07:01 97.8 F 05/27/18 00:00 98.3 F Weight Weight 78.698 kg Most Recent Monitor Data Heart Rate from ECG 75 NIBP 103/74 NIBP BP-Mean 83 Respiration from ECG 15 SpO2 95 I&O: 05/26/18 05/27/18 05/28/18 06:59 06:59 06:59 Intake Total 1120 810 Output Total 150 275 Balance 970 535 Result Diagrams: 05/27/18 04:12 05/27/18 04:12 Phys Exam - Physical Examination Constitutional: NAD HEENT: sclera anicteric Neck: no JVD Respiratory: clear to auscultation bilateral Cardiovascular: no significant murmur Gastrointestinal: soft, non-tender, no distention, positive bowel sounds Musculoskeletal: no edema Neurological: moves all 4 limbs Deviation from normal: A&O x1, self only Skin: no rash Dx/Plan (1) Pancytopenia Code(s): D61.818 - OTHER PANCYTOPENIA Status: Acute (2) Encephalopathy acute Code(s): G93.40 - ENCEPHALOPATHY, UNSPECIFIED Status: Chronic (3) NSTEMI (non-ST elevated myocardial infarction) Code(s): I21.4 - NON-ST ELEVATION (NSTEMI) MYOCARDIAL INFARCTION Status: Acute (4) CHF (congestive heart failure) Code(s): I50.9 - HEART FAILURE, UNSPECIFIED Status: Chronic (5) Sepsis Code(s): A41.9 - SEPSIS, UNSPECIFIED ORGANISM Status: Resolved (6) Atrial fibrillation Code(s): I48.91 - UNSPECIFIED ATRIAL FIBRILLATION Status: Chronic (7) CAD (coronary artery disease) Code(s): I25.10 - ATHSCL HEART DISEASE OF [place] CORONARY ARTERY W/O ANG PCTRS Status: Chronic (8) CKD (chronic kidney disease) Code(s): N18.9 - CHRONIC KIDNEY DISEASE, UNSPECIFIED Status: Chronic (9) Diabetes mellitus Code(s): E11.9 - TYPE 2 DIABETES MELLITUS WITHOUT COMPLICATIONS Status: Chronic (10) HTN (hypertension) Code(s): I10 - ESSENTIAL (PRIMARY) HYPERTENSION Status: Chronic (11) Rheumatoid arthritis Code(s): M06.9 - RHEUMATOID ARTHRITIS, UNSPECIFIED Status: Chronic - Plan Plan: Acute on chronic Encephalopathy -improved mental status, A&O x1. Unclear baseline. Would expect a significant portion of remaining alteration is hospital related delirium. Infectious work up has not shown obvious source. - continue to monitor. Sepsis without a source- -Urine and blood cx negative thus far. Blood cultures will be final by tomorrow morning, will dc abx at that time. Hypotension, resolved NSTEMI 2/2 demand ischemia- - appears to be stable. Pt has known non operative CAD - Cards following Acute cough - improved, no signs of infection on CXR - Continue to hold AZA, and will recheck procal Pancytopenia - Values improving slowly, Most likely related to azathioprine that the patient started ~ 1 month ago - Will hold AZA & continue to monitor. - Will hold anticoagulation for now per cards recs TERE on CKD stage III - Cr appears to be stable. Continue to monitor output, will avoid IVF if possible to due CHF - Follows with [facility] outpatient for CKD stage 3) CAD s/p 3V CABG - Per cards last cath 6 months ago showed diffuse disease but no surgical intervention done. - Will continue medical management. Rheumatoid arthritis - Aware, will hold azathioprine 2/2 pancytopenia. Diabetes Mellitus - Decrease 70/30 to 25 this am, over the past 24 hours glucose has been over 200. No hypoglycemic episodes - ACHS accuchecks & hypoglycemia protocol. Chronic diarrhea - Will consider stool studies. Dispo: Ready to move to medical floor. Will evaluate for rehab placement. Addendum - Attending - Attending Attestation Date/Time: 05/27/18 9607 I personally evaluated the patient and discussed the management with Dr. Crouch. I agree with the History, Examination, Assessment and Plan documented above with any addition or exceptions noted below. Patient overall doing well. No fevers, labs stable. He continues to have issues with sundowning which have been an issue even outside the hospital and during a hospitalization in October. He denies complaints this morning. Cultures negative. Await any further recs from Cards/Pul. Will transfer out of [facility] today. Consult PT and CM to evaluate for possible rehab versus SNF placement.
--- NOTE | 2018-05-27 09:18 | PRG ---
DATE OF SERVICE: 05/27/2018 SUBJECTIVE: The patient looks much better today. He had no acute complaints. OBJECTIVE: VITAL SIGNS: His temperature is 97.8, pulse 80, blood pressure 103/74, and O2 saturation 95%. HEENT: Unremarkable. NECK: No JVD. CHEST: Clear to auscultation. CARDIAC: S1 and S2 regular. ABDOMEN: Soft. EXTREMITIES: No edema. LABORATORY DATA: White blood cell count 3, hematocrit 32, and platelet count 120. Sodium 138, potassium 4, chloride 107, CO2 of 17, BUN 58, creatinine 2.4, and glucose 198. ASSESSMENT: 1. Non-Q-wave myocardial infarction. 2. Improved mental status. 3. Pancytopenia with improvement. PLAN: 1. Continuing antibiotics. 2. Hypoglycemia-blood sugar trend has improved over the last 24 hours. 3. He is stable enough to transfer to either telemetry or medical. Job ID: [id number]
[2018-05-27] MEDS: Gabapentin 300 MG CAP PO SCH ×3 (10:01→21:32)
[2018-05-27] MEDS: Potassium Chloride 10 MEQ TAB PO SCH (10:01)
[2018-05-27] MEDS: Aspirin 81 mg Enteric Coated Tablet PO SCH (10:01)
[2018-05-27] MEDS: Fish Oil 1,000 MG CAP PO SCH (10:01)
[2018-05-27] MEDS: Multivitamin W/ Minerals 1 TAB PO SCH (10:01)
[2018-05-27] MEDS: predniSONE 5 MG TAB PO SCH (10:01)
[2018-05-27] MEDS: HumuLIN 70/30 (300 UNITS/3 ML VIAL) SC SCH (10:03)
--- NOTE | 2018-05-27 13:21 | PDOC.CTH ---
Cardiology Progress Note - Subjective Minimal change from yesterday as far as mentation. not in room today. - Objective Vital Signs Temp Pulse Pulse BP BP Pulse Ox Pulse Ox 05/27/18 11:04 99.3 F 05/27/18 10:52 78 88 139/87 121/79 97 05/27/18 08:00 98 05/27/18 07:01 97.8 F Pulse Ox 05/27/18 11:04 05/27/18 10:52 97 05/27/18 08:00 05/27/18 07:01 Weight 173 lb 8 oz 05/26/18 05/27/18 05/28/18 06:59 06:59 06:59 Intake Total 1120 810 Output Total 150 275 Balance 970 535 - Physical Examination General/Neuro: NAD Neck: no JVD present Lungs: CTA, unlabored respirations Heart: RRR Abdomen: NT/ND Extremities: + edema B (trace) - Telemetry Telemetry Rhythm: afib HR 80' - Labs Result Diagrams: 05/27/18 04:12 05/27/18 04:12 Troponin/CKMB CK-MB (CK-2) 8.7 ng/mL (0-6.6) H* 05/26/18 07:24 Troponin I 7.165 ng/mL (< 0.028) H* 05/26/18 07:24 - Assessment/Plan 1. AMS 2. NSTEMI 3. Severe diffuse CAD. 4. S/P CABG 5. S/P AICD 6. Hx of VT thought to be related to ischemic CM and hypokalemia. 7. cute on chronic TERE. PLAN: - LHC in Apr 2016 showed occluded SVG to RCA and occluded SVG to OM. His [place] RCA is occluded and his [place] LCx was 99% stenosed. His LEE to LAD was patent but landed on a diffusely diseased LAD with severe distal disease. No revascularization options. - Unclear as to cause of overall Altered mentation would be but my suspicion is he has some viral URI. - No major change today. No chest pain. - Continue current cardiac meds.
--- NOTE | 2018-05-27 16:58 | PQF ---
CLINICAL DOCUMENTATION IMPROVEMENT CLARIFICATION FORM: ICD-10 Updated PLEASE DO AN ADDENDUM TO THE PROGRESS NOTE WITH ANY DOCUMENTATION UPDATES OR ADDITIONS AND CARRY THROUGH TO DC SUMMARY. THANK YOU. DATE: 05/27/2018; 05/28/2018 ATTN: Dr. Crouch/ Attending Dr. Obrien Please exercise your independent, professional judgment in responding to the clarification form. Clinical indicators are provided on the bottom of this form for your review Please check appropriate box(s): Conflicting documentation was noted in the Medical Record, please clarify if patient is being treated/monitored for: [ ] NSTEMI [ x ] NSTEMI d/t Demand Ischemia (HI Type II) [ ] Other diagnosis [ ] Unable to determine In addition, please specify: Present on Admission (POA): [ x ] Yes [ ] No [ ] Unable to determine For continuity of documentation, please document condition throughout progress notes and discharge summary. Thank You. CLINICAL INDICATORS - SIGNS / SYMPTOMS/ LABS PN 05/27: NSTEMI. ACUTE NSTEMI 2/2 DEMAND ISCHEMIA -appears to be stable. Pt has known non operative CAD PN 05/27: ([place]) NSTEMI Severe diffuse CAD. RISKS: H&P 05/24: Hx HTN, CHF, atrial fibrillation. DMII, RA, CM s/p defibrillator placement, CKD III TREATMENT: Order 05/24: Aspirin 81 mg po Daily PN 05/25: -Repeated EKG and trops this morning -lovenox not started as pt is thrombocytopenic Thank you, Desi (This form is maintained as a part of the permanent medical record) 2014 [employer]. All Rights Reserved Desi Doan RN, BSN [email or web address] Office: [phone] [facility] CLINICElvia
[2018-05-27] MEDS: Vancomycin HCl 750 MG in Sodium Chloride 0.9% 250 ML 250 ML IVPB SCH (21:32)
[2018-05-28] MEDS: Haloperidol Lactate 5 MG/ML VIAL SLOW IVP PRN ×3 (00:20→23:13)
[2018-05-28] MEDS: Piperacillin/Tazobactam 2.25 GM in Sodium Chloride 0.9% 100 ML IVPB SCH (05:55)
[2018-05-28] MEDS: Aspirin 81 mg Enteric Coated Tablet PO SCH (08:18)
[2018-05-28] MEDS: predniSONE 5 MG TAB PO SCH (08:19)
[2018-05-28] MEDS: Fish Oil 1,000 MG CAP PO SCH (08:20)
[2018-05-28] MEDS: HumuLIN 70/30 (300 UNITS/3 ML VIAL) SC SCH (08:20)
[2018-05-28] MEDS: Multivitamin W/ Minerals 1 TAB PO SCH (08:20)
[2018-05-28] MEDS: Potassium Chloride 10 MEQ TAB PO SCH (08:20)
--- NOTE | 2018-05-28 08:32 | PDOC.FM ---
- Subjective Subjective: Patient seen at bedside resting comfortably this morning, no acute distress. Patient is confused this morning and talking about "launching rockets." Over night patient became combative and again required Haldol. - Objective MAR Reviewed: Yes Vital Signs & Weight: Vital Signs (12 hours) Temp Pulse Resp BP BP Pulse Ox 05/28/18 07:49 97.6 F 90 20 138/86 100 05/28/18 06:57 97 05/28/18 05:00 97.5 F L 86 18 112/78 97 05/28/18 00:00 97.7 F 86 18 134/63 97 Weight Weight 77.819 kg Most Recent Monitor Data Heart Rate from ECG 85 NIBP 121/79 NIBP BP-Mean 93 Respiration from ECG 24 SpO2 97 I&O: 05/27/18 05/28/18 05/29/18 06:59 06:59 06:59 Intake Total 810 Output Total 275 Balance 535 Result Diagrams: 05/28/18 09:45 05/28/18 09:45 Phys Exam - Physical Examination Constitutional: NAD HEENT: moist MMs Neck: full ROM Respiratory: clear to auscultation bilateral Cardiovascular: RRR, no significant murmur Gastrointestinal: soft, non-tender, no distention Musculoskeletal: no edema Neurological: non-focal, moves all 4 limbs Deviation from normal: A&O to self only. Pt confused Dx/Plan (1) Pancytopenia Code(s): D61.818 - OTHER PANCYTOPENIA Status: Acute (2) Encephalopathy acute Code(s): G93.40 - ENCEPHALOPATHY, UNSPECIFIED Status: Chronic (3) NSTEMI (non-ST elevated myocardial infarction) Code(s): I21.4 - NON-ST ELEVATION (NSTEMI) MYOCARDIAL INFARCTION Status: Acute (4) CHF (congestive heart failure) Code(s): I50.9 - HEART FAILURE, UNSPECIFIED Status: Chronic (5) Sepsis Code(s): A41.9 - SEPSIS, UNSPECIFIED ORGANISM Status: Resolved (6) Atrial fibrillation Code(s): I48.91 - UNSPECIFIED ATRIAL FIBRILLATION Status: Chronic (7) CAD (coronary artery disease) Code(s): I25.10 - ATHSCL HEART DISEASE OF [place] CORONARY ARTERY W/O ANG PCTRS Status: Chronic (8) CKD (chronic kidney disease) Code(s): N18.9 - CHRONIC KIDNEY DISEASE, UNSPECIFIED Status: Chronic (9) Diabetes mellitus Code(s): E11.9 - TYPE 2 DIABETES MELLITUS WITHOUT COMPLICATIONS Status: Chronic (10) HTN (hypertension) Code(s): I10 - ESSENTIAL (PRIMARY) HYPERTENSION Status: Chronic (11) Rheumatoid arthritis Code(s): M06.9 - RHEUMATOID ARTHRITIS, UNSPECIFIED Status: Chronic (12) Hypoglycemia Code(s): E16.2 - HYPOGLYCEMIA, UNSPECIFIED Status: Acute - Plan Plan: Acute on chronic Encephalopathy -continues to be A&O x1 with periodic periods of hallucination. Unclear baseline. Would expect a significant portion of remaining alteration is hospital related delirium. Infectious work up has not shown obvious source. - continue to monitor. Sepsis without a source- -Urine and blood cx negative, dc abx today Hypotension, resolved Hypogylcemia - pt continues to have hypoglycemic episodes in the wrapper hand. He has had a reduced dose of 70/30 in the morning only and has received no correctional SSI. It is possible that this is related to poor evening intake, otherwise the etiology is unclear. Glucose has been better controlled during daytime hours since resuming 70/30. Will decrease morning insulin. NSTEMI 2/2 demand ischemia- - appears to be stable. Pt has known non operative CAD - Cards following Acute cough, resolved Pancytopenia - Stable at thtis time, continue to monitor likely related to azathioprine that the patient started ~ 1 month ago - Will hold AZA - Will hold anticoagulation for now per cards recs TERE on CKD stage III - Cr adn urinary output are improving - Follows with Justin Gregory outpatient for CKD stage 3) CAD s/p 3V CABG - Per cards last cath 6 months ago showed diffuse disease but no surgical intervention done. - Will continue medical management. Rheumatoid arthritis - Aware, will hold azathioprine 2/2 pancytopenia. Diabetes Mellitus - Decrease 70/30 to 23 this am, management of hypoglycemia as above - [facility] accuchecks & hypoglycemia protocol. Chronic diarrhea - Will consider stool studies. Dispo: Ready to move to medical floor. Will evaluate for rehab placement. Addendum - Attending - Attending Attestation Date/Time: 05/28/18 1939 I personally evaluated the patient and discussed the management with Dr. Crouch I agree with the History, Examination, Assessment and Plan documented above with any addition or exceptions noted below. Severe CAD, non-operable Dementia with sundowning- haldol as needed (good improvement). A&O x 2 at the time of my exam. Pancytopenia-resolving since stopping azathioprine. CKD-appears to be near baseline hypoglycemia- decrease 70/30 dose to prevent hypoglycemia- probably related to kidney disease and prolonged insulin in his system and poor intake. Awaiting CM for placement (inpt rehab vs. SNF).
[2018-05-28] MEDS ORDERED: HumuLIN 70/30 (300 UNITS/3 ML VIAL) SC SCH (08:41)
[2018-05-28] MEDS: Gabapentin 300 MG CAP PO SCH ×3 (08:52→20:45)
--- NOTE | 2018-05-28 08:59 | PRG ---
DATE OF SERVICE: 05/28/2018 OBJECTIVE: GENERAL: The patient is awake, alert, not quite oriented, but pleasant. VITAL SIGNS: Temperature 97.6, pulse 90, respirations 20, O2 saturation 100%, and blood pressure is 133/86. HEENT: Unremarkable. NECK: No JVD. CHEST: Clear to auscultation. CARDIAC: S1, S2. Regular. ABDOMEN: Soft. EXTREMITIES: No edema. LABORATORY DATA: No new labs were obtained today ASSESSMENT: 1. Encephalopathy which appears to be improved. 2. Non-Q-wave myocardial infarction. 3. Pancytopenia. PLAN: 1. Again, best to avoid hypoglycemia in this patient as I think that aggravates his mental status. 2. I would consider consolidating his antibiotics or even discontinuing possibly. 3. There were no further Pulmonary recommendations. We will sign off. Job ID: [id number]
[2018-05-28 10:07] LABS: #Eosinphils 0.2 thou/uL (0.0-0.7); #Lymphocytes 0.9 thou/uL (1.20-3.40); #Monocytes 0.5 thou/uL (0.11-0.59); #Neutrophils 1.9 thou/uL (1.40-6.50); %Basophils 0.3 % (0.0-1.0); %Eosinophils 5.8 % (0.0-10.0); %Lymphocytes 25.2 % (21.0-51.0); %Neutrophils 55.6 % (42.0-75.0)
[2018-05-28 10:31] LABS: Anion Gap 13 mmol/L (10-20); BUN (Urea Nitrogen) 52 mg/dL (8.4-25.7); Calc. Creatinine Clearance 34 mL/min (70-130); Calcium 8.6 mg/dL (7.8-10.44); Carbon Dioxide 21 mmol/L (23-31); Chloride 111 mmol/L (98-107); Estimated GFR-MDRD 32; Glucose 285 mg/dL (83-110); Potassium 4.4 mmol/L (3.5-5.1); Sodium 141 mmol/L (136-145)
[2018-05-28 10:34] LABS: Hemoglobin 10.1 g/dL (14.0-18.0); MDiff Complete? YES; Macrocytosis SLIGHT = 6-15 cells (100X) (0-5/hpf); Mean Corpuscular HGB CONC 32.2 g/dL (32.0-36.0); Mean Corpuscular Hemoglobin 33.8 pg (27.0-31.0); Mean Platelet Volume 8.7 fL (7.4-10.4); Platelet Count 247 thou/uL (130-400); Platelet Morphology Comment Appears Adequate; Polychromasia SLIGHT = 2-3 cells (100X) (0-2/hpf); RBC Distribution Width 15.3 % (11.5-14.5); Red Blood Cell (RBC) Count 2.99 mill/uL (4.70-6.10); White Blood Cell (WBC) Count 3.4 thou/uL (4.8-10.8)
[2018-05-28 11:19] LABS: Hemoglobin A1c 9.5 % (4.0-6.0)
--- NOTE | 2018-05-28 12:46 | PQF ---
CLINICAL DOCUMENTATION IMPROVEMENT CLARIFICATION FORM: ICD-10 Updated PLEASE DO AN ADDENDUM TO THE PROGRESS NOTE WITH ANY DOCUMENTATION UPDATES OR ADDITIONS AND CARRY THROUGH TO DC SUMMARY. THANK YOU. DATE: 05/28/2018 ATTN: Dr. Crouch/ Attending Dr. Hi Please exercise your independent, professional judgment in responding to the clarification form. Clinical indicators are provided on the bottom of this form for your review Please check appropriate box(s): [ x ] Encephalopathy: Etiology: [ x ] Metabolic [ ] Toxic [ ] Septic [ ] Drug induced: [ ] Unspecified [ x ] in the setting of underlying dementia [ ] Other (please specify) [ ] Other diagnosis [ ] Unable to determine In addition, please specify: Present on Admission (POA): [ x ] Yes [ ] No [ ] Unable to determine For continuity of documentation, please document condition throughout progress notes and discharge summary. Thank You. CLINICAL INDICATORS - SIGNS / SYMPTOMS / LABS PN 05/26 (Mart) The pt had a spell of altered mental status this morning, which looks like it is probably secondary to hypoglycemia. He is now awake, fairly alert, and eating breakfast. glucose 60 AMS that may have been precipitated by hypoglycemia PN 05/27 (Mart) Improved mental status. Pancytopenia with improvement Hypoglycemia-blood sugar trend has improved over the last 24 hts. PN 05/28: Acute on chronic Encephalopathy. -continues to be A&O x1 w. periodic periods of hallucination. Would expect a significant portion of remaining alteration is hospital related delirium. Hypoglycemia -pt continues to have hypoglycemic episodes in the scale agent. 05/28: Attending: Dementia with sundowning - haldol as needed (good improvement). A&O x2 at the time of my exam. Pancytopenia-resolving since stopping azathioprine. hypoglycemia - decrease 70/30 dose to prevent hypoglycemia -probably related to kidney disease and prolonged insulin in his system and poor intake. PN 05/28 (Mart): Encephalopathy which appears to be improved. RISKS: H&P 05/24: HX HTN, CHF, atrial fibrillation, DMII, RA. CM, CKD III. Acute Encephalopathy. Pancytopenia -likely related to azathrioprine. ETRE on CKD 3. hypotension with concern for sepsis. TREATMENT: Admit to IMCU Order 05/24-05/28: IV Zosyn Order 05/26-05/28: Humulin 70/30 25 units sc q am Order 05/28-05/28: Humulin 70/30 23 units sc q am Order 05/28: Humulin 70/30 10units sc q am Thank you, Desi (This form is maintained as a part of the permanent medical record) 2015 [employer]. All Rights Reserved Desi Doan RN, BSN [email or web address] Office: [phone] [facility]OSPITALElvia
[2018-05-28 21:07] LABS: Vancomycin, Trough 16.8 ug/mL
[2018-05-28] MEDS: HumaLOG 300 UNITS/3 ML VIAL SC PRN (22:10)
[2018-05-28] MEDS ORDERED: Haloperidol Lactate 5 MG/ML VIAL ONE (23:09)
[2018-05-28] MEDS: Furosemide 40 MG TAB PO SCH (23:14)
[2018-05-29] MEDS: Furosemide 40 MG TAB PO SCH ×3 (00:46→20:46)
[2018-05-29] MEDS ORDERED: Furosemide 20 MG/2 ML VIAL SLOW IVP SCH (01:45)
[2018-05-29 06:27] LABS: Band 10 % (5-11); Eosinophils 2 % (0-10); Hemoglobin 9.4 g/dL (14.0-18.0); Lymphocytes 36 % (21-51); MDiff Complete? YES; Mean Corpuscular HGB CONC 33.4 g/dL (32.0-36.0); Mean Corpuscular Hemoglobin 35.4 pg (27.0-31.0); Mean Platelet Volume 8.1 fL (7.4-10.4); Monocytes 12 % (0-10); Neutrophil 40 % (42-75); Nucleated RBC 2 % (0); Platelet Count 244 thou/uL (130-400); Platelet Morphology Comment Appears Adequate; RBC Distribution Width 16.8 % (11.5-14.5); Red Blood Cell (RBC) Count 2.64 mill/uL (4.70-6.10); White Blood Cell (WBC) Count 3.6 thou/uL (4.8-10.8)
[2018-05-29 06:32] LABS: Anion Gap 13 mmol/L (10-20); BUN (Urea Nitrogen) 48 mg/dL (8.4-25.7); Calc. Creatinine Clearance 31 mL/min (70-130); Calcium 8.4 mg/dL (7.8-10.44); Carbon Dioxide 21 mmol/L (23-31); Chloride 115 mmol/L (98-107); Estimated GFR-MDRD 30; Glucose 101 mg/dL (83-110); Potassium 3.6 mmol/L (3.5-5.1); Sodium 145 mmol/L (136-145)
--- NOTE | 2018-05-29 08:53 | PDOC.FM ---
- Subjective Subjective: Seen at bedside this morning sleeping comfortably. Over night patient had significant periods of confusion and aggression requiring prn haldol. - Objective Vital Signs & Weight: Vital Signs (12 hours) Pulse Pulse Ox 05/29/18 08:38 99 05/29/18 02:01 88 99 Weight Weight 76.385 kg Most Recent Monitor Data Heart Rate from ECG 85 NIBP 121/79 NIBP BP-Mean 93 Respiration from ECG 24 SpO2 97 I&O: 05/28/18 05/29/18 05/30/18 06:59 06:59 06:59 Intake Total 100 Output Total 2124 2124 Balance -2124 Result Diagrams: 05/29/18 05:47 05/29/18 05:47 Phys Exam - Physical Examination Constitutional: NAD HEENT: moist MMs Neck: full ROM Respiratory: clear to auscultation bilateral Cardiovascular: RRR, no significant murmur Gastrointestinal: positive bowel sounds Musculoskeletal: no edema Neurological: moves all 4 limbs Deviation from normal: A&O x1 Dx/Plan (1) Pancytopenia Code(s): D61.818 - OTHER PANCYTOPENIA Status: Acute (2) Encephalopathy acute Code(s): G93.40 - ENCEPHALOPATHY, UNSPECIFIED Status: Chronic (3) NSTEMI (non-ST elevated myocardial infarction) Code(s): I21.4 - NON-ST ELEVATION (NSTEMI) MYOCARDIAL INFARCTION Status: Acute (4) CHF (congestive heart failure) Code(s): I50.9 - HEART FAILURE, UNSPECIFIED Status: Chronic (5) Sepsis Code(s): A41.9 - SEPSIS, UNSPECIFIED ORGANISM Status: Resolved (6) Atrial fibrillation Code(s): I48.91 - UNSPECIFIED ATRIAL FIBRILLATION Status: Chronic (7) CAD (coronary artery disease) Code(s): I25.10 - ATHSCL HEART DISEASE OF [place] CORONARY ARTERY W/O ANG PCTRS Status: Chronic (8) CKD (chronic kidney disease) Code(s): N18.9 - CHRONIC KIDNEY DISEASE, UNSPECIFIED Status: Chronic (9) Diabetes mellitus Code(s): E11.9 - TYPE 2 DIABETES MELLITUS WITHOUT COMPLICATIONS Status: Chronic (10) HTN (hypertension) Code(s): I10 - ESSENTIAL (PRIMARY) HYPERTENSION Status: Chronic (11) Rheumatoid arthritis Code(s): M06.9 - RHEUMATOID ARTHRITIS, UNSPECIFIED Status: Chronic (12) Hypoglycemia Code(s): E16.2 - HYPOGLYCEMIA, UNSPECIFIED Status: Acute - Plan Plan: Acute on chronic Encephalopathy -continues to be A&O x1 with periodic periods of hallucination. After further discussion with he appears to be at baseline. 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 He has had a reduced dose of 70/30 in the morning only and has received no correctional SSI. - Most likely cause somogyi effect related to poor nighttime intake. NSTEMI 2/2 demand ischemia- - stable known diffuse CAD - Cards following Acute cough, resolved Pancytopenia - Stable at thtis time, platelets WNL - Will hold azathioprine - Will hold anticoagulation for now per cards recs. Discuss goals of care with family regarding jail anticoagulation TERE on CKD stage III - Cr adn urinary output are stable - Follows with [facility] Gregory outpatient for CKD stage 3) CAD s/p 3V CABG - Per cards last cath 6 months ago showed diffuse disease but no surgical intervention done. - Will continue medical management. Rheumatoid arthritis - Aware, will hold azathioprine 2/2 pancytopenia. Diabetes Mellitus - Decrease 70/30 to 23 this am, management of hypoglycemia as above - [facility] accuchecks & hypoglycemia protocol. Chronic diarrhea - Will consider stool studies. Dispo: Ready to move to medical floor. Will evaluate for rehab placement. Addendum - Attending - Attending Attestation Date/Time: 05/29/18 5382 I personally evaluated the patient and discussed the management with Dr. Crouch I agree with the History, Examination, Assessment and Plan documented above with any addition or exceptions noted below. Acute on chronic encephalopathy- appears to be worsening dementia per wifes report. Waking and waning. On scheduled seroquel and prn haldol for agitation. Patient pleasantly demented. Will need SNF placement Severe, non-operable CAD- appreciate cards recs. Pancytopenia- improving since stopping azathioprine Urinary retention- Dr. Crouch will do prostate exam and will start flomax. Serial bladder scans and I/O caths.
[2018-05-29] MEDS: predniSONE 5 MG TAB PO SCH (09:29)
[2018-05-29] MEDS: Fish Oil 1,000 MG CAP PO SCH (09:30)
[2018-05-29] MEDS: Potassium Chloride 10 MEQ TAB PO SCH (09:31)
[2018-05-29] MEDS: Multivitamin W/ Minerals 1 TAB PO SCH (09:31)
[2018-05-29] MEDS: Aspirin 81 mg Enteric Coated Tablet PO SCH (09:31)
[2018-05-29] MEDS: Gabapentin 300 MG CAP PO SCH ×3 (09:31→20:46)
--- NOTE | 2018-05-29 09:45 | PRG ---
DATE OF SERVICE: 05/29/2018 SUBJECTIVE: Mr. Maynard is confused more so than yesterday. OBJECTIVE: VITAL SIGNS: On exam, his temperature is 97.9, pulse 88, O2 saturation 99%. HEENT: Unremarkable. NECK: No adenopathy. No JVD. No bruits. LUNGS: Clear anteriorly. CARDIAC: S1, S2. Regular. ABDOMEN: Soft. EXTREMITIES: No edema. LABORATORY DATA: White blood count 3.6, hematocrit 28.1, and platelet count 244. Sodium 145, potassium 3.6, chloride 115 CO2 of 21, BUN 48, creatinine 2.1, glucose 101. He had a blood sugar of 58 this morning. ASSESSMENT: The patient is presenting with symptoms of dementia. On speaking with his , the dementia appears to be worse over the last several months. Symptoms seem to be exacerbated by the insulin regimen that he is on. RECOMMENDATIONS: 1. I would try to hold all long-acting insulin and avoid hypoglycemia at all cost. 2. I would try to minimize his antipsychotic medications. 3. I would suggest getting him evaluated by Neurology to see what they think about this being shear Alzheimer's type dementia. Job ID: [id number]
[2018-05-29] MEDS: HumuLIN 70/30 (300 UNITS/3 ML VIAL) SC SCH (16:26)
[2018-05-29 17:12] LABS: Methylmalonic Acid 574 nmol/L (0-378)
[2018-05-29 18:23] LABS: PTT 33.2 SEC (22.9-36.1)
[2018-05-29 18:24] LABS: INR-International Normal Ratio 1.3; Prothrombin Time 16.5 SEC (12.0-14.7)
--- NOTE | 2018-05-29 18:45 | PDOC.EVN ---
Event Note - Event Note Event Note: Called to bedside due to presence of bloody w/ clots after straight cath placed earlier, yielding > 800 cc of urine. RN placed gregory catheter with little difficulty. I advised her that we can keep the gregory in. On my evaluation about 200 cc of blood-tinged fluid are currently in gregory bag. Bleeding likely from gregory trauma. We will monitor for continued bleeding.
--- NOTE | 2018-05-29 19:32 | PDOC.CTH ---
Cardiology Progress Note - Subjective He is more confused now than when i saw him last. He has had a gregory placed and it now has blood in urine. - Objective Vital Signs Temp Pulse Resp BP BP Pulse Ox 05/29/18 15:23 98.6 F 104 H 19 129/83 97 05/29/18 11:00 97.9 F 115 H 19 143/83 H 96 05/29/18 08:38 99 05/29/18 08:00 92 L Weight 168 lb 6.4 oz 05/28/18 05/29/18 05/30/18 06:59 06:59 06:59 Intake Total 100 Output Total 2124 5032 Balance -0576 -9635 - Physical Examination General/Neuro: NAD, other: (Oriented to person only. ) Neck: no JVD present Lungs: unlabored respirations Heart: other: (Irreg Irreg) Abdomen: NT/ND Extremities: + edema B (Trace) - Labs Result Diagrams: 05/29/18 05:47 05/29/18 05:47 Troponin/CKMB CK-MB (CK-2) 8.7 ng/mL (0-6.6) H* 05/26/18 07:24 Troponin I 7.165 ng/mL (< 0.028) H* 05/26/18 07:24 - Assessment/Plan 1. AMS 2. NSTEMI 3. Severe diffuse CAD. 4. S/P CABG 5. S/P AICD 6. Hx of VT thought to be related to ischemic CM and hypokalemia. 7. Acute on chronic TERE. 8. Hematuria, likely gregory trauma. PLAN: - C in Apr 2016 showed occluded SVG to RCA and occluded SVG to OM. His [place] RCA is occluded and his [place] LCx has a 99% stenosis. His LEE to LAD was patent but landed on a diffusely diseased LAD with severe distal disease. No revascularization options. - Continue to hold anticoagulation due to hematuria now. - Concern for worsening of underlying dementia. - CV stable, tachycardia is likely from agitation.
[2018-05-29] MEDS: Haloperidol Lactate 5 MG/ML VIAL SLOW IVP PRN (20:53)
[2018-05-30 07:09] LABS: Hemoglobin 11.2 g/dL (14.0-18.0); Mean Corpuscular HGB CONC 32.9 g/dL (32.0-36.0); Mean Corpuscular Hemoglobin 35.4 pg (27.0-31.0); Mean Platelet Volume 8.1 fL (7.4-10.4); Platelet Count 356 thou/uL (130-400); RBC Distribution Width 18.1 % (11.5-14.5); Red Blood Cell (RBC) Count 3.18 mill/uL (4.70-6.10); White Blood Cell (WBC) Count 4.3 thou/uL (4.8-10.8)
[2018-05-30] MEDS: Gabapentin 300 MG CAP PO SCH ×3 (08:25→19:36)
[2018-05-30] MEDS: predniSONE 5 MG TAB PO SCH (08:25)
[2018-05-30] MEDS: Potassium Chloride 10 MEQ TAB PO SCH (08:25)
[2018-05-30] MEDS: Aspirin 81 mg Enteric Coated Tablet PO SCH (08:25)
[2018-05-30] MEDS: Multivitamin W/ Minerals 1 TAB PO SCH (08:26)
[2018-05-30] MEDS: Furosemide 40 MG TAB PO SCH ×2 (08:26→19:36)
[2018-05-30] MEDS: HumuLIN 70/30 (300 UNITS/3 ML VIAL) SC SCH (08:26)
[2018-05-30] MEDS: Fish Oil 1,000 MG CAP PO SCH (08:26)
--- NOTE | 2018-05-30 08:53 | PDOC.FM ---
- Subjective Subjective: Seen at bedside this morning resting comfortably. Yesterday patient had continued urinary retention and gregory was needed. Patient initially had hematuria when gregory was started. No episodes of agitation over night. - Objective MAR Reviewed: Yes Vital Signs & Weight: Vital Signs (12 hours) Pulse Pulse Ox 05/30/18 01:30 87 100 Weight Weight 74.253 kg Most Recent Monitor Data Heart Rate from ECG 85 NIBP 121/79 NIBP BP-Mean 93 Respiration from ECG 24 SpO2 97 I&O: 05/29/18 05/30/18 05/31/18 06:59 06:59 06:59 Intake Total 650 Output Total 7103 2721 Balance -2123 -4264 Result Diagrams: 05/30/18 06:11 05/30/18 06:11 Phys Exam - Physical Examination Constitutional: NAD HEENT: moist MMs Respiratory: clear to auscultation bilateral Cardiovascular: RRR, no significant murmur Gastrointestinal: soft, non-tender, no distention Musculoskeletal: no edema Neurological: moves all 4 limbs Deviation from normal: A&O x1 Skin: no rash Dx/Plan (1) Pancytopenia Code(s): D61.818 - OTHER PANCYTOPENIA Status: Acute (2) Encephalopathy acute Code(s): G93.40 - ENCEPHALOPATHY, UNSPECIFIED Status: Chronic (3) NSTEMI (non-ST elevated myocardial infarction) Code(s): I21.4 - NON-ST ELEVATION (NSTEMI) MYOCARDIAL INFARCTION Status: Acute (4) CHF (congestive heart failure) Code(s): I50.9 - HEART FAILURE, UNSPECIFIED Status: Chronic (5) Sepsis Code(s): A41.9 - SEPSIS, UNSPECIFIED ORGANISM Status: Resolved (6) Atrial fibrillation Code(s): I48.91 - UNSPECIFIED ATRIAL FIBRILLATION Status: Chronic (7) CAD (coronary artery disease) Code(s): I25.10 - ATHSCL HEART DISEASE OF [place] CORONARY ARTERY W/O ANG PCTRS Status: Chronic (8) CKD (chronic kidney disease) Code(s): N18.9 - CHRONIC KIDNEY DISEASE, UNSPECIFIED Status: Chronic (9) Diabetes mellitus Code(s): E11.9 - TYPE 2 DIABETES MELLITUS WITHOUT COMPLICATIONS Status: Chronic (10) HTN (hypertension) Code(s): I10 - ESSENTIAL (PRIMARY) HYPERTENSION Status: Chronic (11) Rheumatoid arthritis Code(s): M06.9 - RHEUMATOID ARTHRITIS, UNSPECIFIED Status: Chronic (12) Hypoglycemia Code(s): E16.2 - HYPOGLYCEMIA, UNSPECIFIED Status: Acute (13) Urinary retention Code(s): R33.9 - RETENTION OF URINE, UNSPECIFIED Status: Acute - Plan Plan: Acute on chronic Encephalopathy - currently stable and at apparent baseline - neuro consult pending - case management is working on placement options Urinary retention - currently requiring gregory, will leave in place for 3-5 days and have patient follow up with urology in outpatient setting. - no clear cause at this time, expect BPH Sepsis without a source, resolved Hypotension, resolved Hypogylcemia - no hypoglycemia last night, Continue to monitor NSTEMI 2/2 demand ischemia- - stable known diffuse CAD - Cards following Acute cough, resolved Pancytopenia - Stable at thtis time, platelets WNL - Will hold azathioprine - Will hold anticoagulation for now per cards recs. Discuss goals of care with family regarding correction anticoagulation TERE on CKD stage III - Cr adn urinary output are stable - Follows with [facility] outpatient for CKD stage 3) CAD s/p 3V CABG - Per cards last cath 6 months ago showed diffuse disease but no surgical intervention done. - Will continue medical management. Rheumatoid arthritis - Aware, will hold azathioprine 2/2 pancytopenia. Diabetes Mellitus - Continue 70/30 at 10u in am - [facility] accuchecks & hypoglycemia protocol. Chronic diarrhea - Will consider stool studies. Dispo: Medically stable, will need urology fu in outpatient setting dt gregory. Placement pending. Addendum - Attending - Attending Attestation Date/Time: 05/30/18 5046 I personally evaluated the patient and discussed the management with Dr. Crouch. I agree with the History, Examination, Assessment and Plan documented above with any addition or exceptions noted below. Encephalopathy- Acute metabolic on chronic underlying dementia (per report) . Neuro consult for dementia. On scheduled seroquel which has improved nightime agitation. Will d/c haldol prn. Patient needs placement at SNF as unable to safely care for patient. Hypoglycemia- resolved. will start back at half of the normal dose. Hematuria and urinary retention- hematuria most likely related to gregory trauma. Clear in the gregory catheter. Will start flomax and call urology for further input. Severe CAD, non-operable- appreciate cards recs.
--- NOTE | 2018-05-30 08:55 | PRG ---
DATE OF SERVICE: 05/30/2018 SUBJECTIVE: The patient is far less confused today than he was yesterday. He is sitting up, eating. OBJECTIVE: VITAL SIGNS: Temperature 98.9, pulse 87, respirations 20, O2 saturation 100%. HEENT: Unremarkable. NECK: No JVD. LUNGS: Clear anteriorly. CARDIAC: S1, S2. Regular. ABDOMEN: Soft. EXTREMITIES: No edema. ASSESSMENT: Dementia. Possible over-medication. RECOMMENDATION: 1. I would minimize all psychiatric medications. 2. I would get him assessed for Alzheimer's. 3. No further Pulmonary recommendations. We will sign off. Job ID: [id number]
[2018-05-30 10:21] LABS: Band 16 % (5-11); Eosinophils 6 % (0-10); Lymphocytes 22 % (21-51); MDiff Complete? YES; Macrocytosis SLIGHT = 6-15 cells (100X) (0-5/hpf); Monocytes 8 % (0-10); Neutrophil 48 % (42-75); Ovalocytes SLIGHT = 2-5 cells (100X) (0-1/hpf); Platelet Morphology Comment Appears Adequate; Polychromasia SLIGHT = 2-3 cells (100X) (0-2/hpf)
[2018-05-30 11:17] LABS: Anion Gap 20 mmol/L (10-20); BUN (Urea Nitrogen) 42 mg/dL (8.4-25.7); Calc. Creatinine Clearance 31 mL/min (70-130); Calcium 8.7 mg/dL (7.8-10.44); Carbon Dioxide 18 mmol/L (23-31); Chloride 109 mmol/L (98-107); Estimated GFR-MDRD 32; Glucose 172 mg/dL (83-110); Potassium 4.7 mmol/L (3.5-5.1); Sodium 142 mmol/L (136-145)
[2018-05-30] MEDS: HumaLOG 300 UNITS/3 ML VIAL SC PRN (12:21)
--- NOTE | 2018-05-30 18:22 | PDOC.CTH ---
Cardiology Progress Note - Subjective He is doing better. Still confused but not as bad as yesterday. - Objective Vital Signs Temp Pulse Resp BP Pulse Ox 05/30/18 16:00 98.8 F 98 20 133/74 94 L 05/30/18 11:00 98.6 F 98 20 130/73 94 L 05/30/18 08:00 100 Weight 163 lb 11.2 oz 05/29/18 05/30/18 05/31/18 06:59 06:59 06:59 Intake Total 650 Output Total 2129 4020 700 Balance -2128 -3375 -700 - Physical Examination General/Neuro: alert & oriented x3, NAD Neck: no JVD present Lungs: CTA, unlabored respirations Heart: other: (Irregular) Abdomen: soft Extremities: + edema B (1+) - Labs Result Diagrams: 05/30/18 06:11 05/30/18 06:11 Troponin/CKMB CK-MB (CK-2) 8.7 ng/mL (0-6.6) H* 05/26/18 07:24 Troponin I 7.165 ng/mL (< 0.028) H* 05/26/18 07:24 - Assessment/Plan 1. AMS 2. NSTEMI 3. Severe diffuse CAD. 4. S/P CABG 5. S/P AICD 6. Hx of VT related to ischemic CM and hypokalemia. 7. Acute on chronic TERE. 8. Hematuria, likely gregory trauma. PLAN: - LHC in Apr 2016 showed occluded SVG to RCA and occluded SVG to OM. His [place] RCA is occluded and his [place] LCx has a 99% stenosis. His LEE to LAD was patent but landed on a diffusely diseased LAD with severe distal disease. No revascularization options. - Continue to hold anticoagulation due to hematuria now. - CV stable, Not tachycardic anymore.
--- NOTE | 2018-05-30 22:38 | CON ---
DATE OF CONSULTATION: 05/30/2018 CONSULTING PHYSICIAN: Family Medicine Service IMPRESSION: Dementia with mild delirium. PLAN: The patient will likely need placement in a usp, given his current cognitive state. HISTORY OF PRESENT ILLNESS: Mr. Maynard is a 77-year-old man who was admitted to the Family Medicine Service. He has been showing signs of confusion since admission. He had a CT scan of the brain done, which showed some age-appropriate atrophy. Other abnormalities include some hypotension, coronary disease activity and pancytopenia. He has been improving medically, but continued to answer inappropriately. I was consulted to give an opinion on his mental capacity. PAST MEDICAL HISTORY: As listed above. ALLERGIES: SULFA. SOCIAL HISTORY: Retired maintenance construction helper and apparently has children who live out of state, but nobody locally. He reportedly lives in a home in [place] by himself, although this is sketchy. He does not admit any tobacco or alcohol use. FAMILY HISTORY: Unremarkable. REVIEW OF SYSTEMS: A 10-system review of systems by his assessment was otherwise unremarkable. PHYSICAL EXAMINATION: GENERAL: He is a well-nourished elderly man, sitting up in bed, in no distress, who is calm and cooperative. HEENT: Pupils are equal and reactive. Conjunctivae are clear. Oropharynx is clear. NECK: Supple. No lymphadenopathy. EXTREMITIES: There is some erythema on the left arm. No edema is present. NEUROLOGIC: He was awake, alert and cooperative. His speech was fluent and clear. He was only oriented to person. In an attempt to reorient and retest, he could not recall what he was told. He followed commands appropriately. He had good muscle strength bilaterally. There was no abnormal movement. No dysmetria or incoordination was present. Sensation was intact to touch. Gait was not tested. 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 He otherwise appears stable. He will likely need placement. Job ID: [id number]
--- NOTE | 2018-05-31 00:41 | CON ---
DATE OF CONSULTATION: 05/30/2018 HISTORY OF PRESENT ILLNESS: This is a 77-year-old white male whom I was asked to see today, 05/30/2018, because of urinary retention and some hematuria. This patient was admitted looks like on the , so that would be 6 days ago. He was admitted by the [facility]. He was brought to the ER because of weakness, confusion, I think he may have fallen and hit his head at least according to him I am not sure if that is what initially caused that or not. He has been worked up for that and I do not think he has had any significant intracranial problem associated with it. Looks like he had a brain CT that showed no intracranial bleed or tumor. He had a catheter placed, it looks like the catheter was placed on the and it looked like he had over a liter of urine in the bladder and apparently, his urine became bloody after the catheter was placed. His initial urinalysis when he came in showed just 4 to 6 red cells. His urine has appeared to have cleared currently. Urine culture set up when he came in on the , which was no growth. He has not had a CAT scan of his abdomen or pelvis. He is on aspirin currently as his only blood thinner. He is currently on Flomax. It does not appear that he was on Flomax before he came in. He was on Eliquis before he came in, but it does not appear that he is currently on that now. He has a sitter with him as he has been confused today, although when I talk with him, he answers all of my questions and seems to be appropriate, but it is hard to say if he is answering truthfully, never to his knowledge, had prostate surgery, catheter placed for prostate cancer, urinary tract stone disease or blood in the urine. He usually not had difficulty urinating. He has probably had one urinary tract infection. His urine is currently clear with just perhaps at most a slight tinge of blood in the Puri catheter tubing. PAST MEDICAL HISTORY: He has high blood pressure. He has history of atrial fibrillation. He has diabetes. He has rheumatoid arthritis. He has some chronic renal insufficiency. His creatinine is running around 2. PAST SURGICAL HISTORY: He has had a defibrillator placed. He has had history of bypass surgery. He has had a femur fracture. He has had a right shoulder procedure. ALLERGIES: TO SULFA. LABORATORY DATA: His white count has been low since he has gotten here. He is mildly anemic with hemoglobin of 11.2. His platelet count is normal. His coags, PT yesterday was 16.5, INR was normal. Creatinine is 2.04 this morning. His glucoses have been somewhat elevated because of his diabetes. PHYSICAL EXAMINATION: His flank is nontender. His abdomen is soft. The bladder is not distended. He is not circumcised. There are no lesions. There is no phimosis. Testicles descended without mass or tenderness. Rectal exam was not done. I cannot find that he has had a PSA done in the [facility] system. IMPRESSION: Urinary retention/incomplete emptying with at least a litter in his bladder when the catheter was placed yesterday and some blood in the urine after the catheter was placed, although the initial urinalysis was normal. It would be unlikely that his bleed would be anything except related to the Puri being in. I do not think he needs a hematuria workup. Urine is already clearing. It is questionable as to whether or not we will get the catheter out. He has been started on Flomax and after he has been on that a few days, we could consider a voiding trial in a week to 10 days, but with over a liter in his bladder, I would think it would take at least that to know if he is going to urinate or not. I do not think he needs to be in the hospital that long that could probably be done at a penitentiary facility. It appears that he is probably going to be discharged to one, so our plan on leaving the catheter in 7 to 10 days given a voiding trial at penitentiary when he is there. I will follow along with you tomorrow, make sure his urine is clearing. I will order PSA blood test to be done in the morning to make sure we were not missing anything in that regard. Job ID: [id number]
[2018-05-31] MEDS: Melatonin 3 MG TAB PO PRN ×2 (01:32→20:04)
[2018-05-31] MEDS: HumaLOG 300 UNITS/3 ML VIAL SC PRN (05:59)
[2018-05-31 07:15] LABS: Hemoglobin 10.8 g/dL (14.0-18.0); Mean Corpuscular HGB CONC 32.7 g/dL (32.0-36.0); Mean Corpuscular Hemoglobin 35.9 pg (27.0-31.0); Mean Platelet Volume 7.8 fL (7.4-10.4); Platelet Count 367 thou/uL (130-400); RBC Distribution Width 19.5 % (11.5-14.5); Red Blood Cell (RBC) Count 2.99 mill/uL (4.70-6.10); White Blood Cell (WBC) Count 4.8 thou/uL (4.8-10.8)
[2018-05-31 07:16] LABS: Anion Gap 16 mmol/L (10-20); BUN (Urea Nitrogen) 42 mg/dL (8.4-25.7); Calc. Creatinine Clearance 32 mL/min (70-130); Calcium 8.6 mg/dL (7.8-10.44); Carbon Dioxide 22 mmol/L (23-31); Chloride 107 mmol/L (98-107); Estimated GFR-MDRD 33; Glucose 257 mg/dL (83-110); Potassium 4.2 mmol/L (3.5-5.1); Sodium 141 mmol/L (136-145)
[2018-05-31 07:52] LABS: Anisocytosis MODERATE=16-30 cells (100X) (0-5/hpf); Band 4 % (5-11); Eosinophils 2 % (0-10); Lymphocytes 20 % (21-51); MDiff Complete? YES; Macrocytosis SLIGHT = 6-15 cells (100X) (0-5/hpf); Monocytes 11 % (0-10); Neutrophil 60 % (42-75); Ovalocytes SLIGHT = 2-5 cells (100X) (0-1/hpf); Platelet Morphology Comment Appears Adequate; Polychromasia SLIGHT = 2-3 cells (100X) (0-2/hpf)
[2018-05-31] MEDS: Aspirin 81 mg Enteric Coated Tablet PO SCH (08:10)
[2018-05-31] MEDS: HumuLIN 70/30 (300 UNITS/3 ML VIAL) SC SCH (08:13)
[2018-05-31] MEDS: Fish Oil 1,000 MG CAP PO SCH (08:13)
[2018-05-31] MEDS: Tamsulosin HCl 0.4 MG CAP PO SCH (08:13)
[2018-05-31] MEDS: Furosemide 40 MG TAB PO SCH ×2 (08:13→20:03)
[2018-05-31] MEDS: Potassium Chloride 10 MEQ TAB PO SCH (08:14)
[2018-05-31] MEDS: predniSONE 5 MG TAB PO SCH (08:14)
[2018-05-31] MEDS: Gabapentin 300 MG CAP PO SCH ×3 (08:14→20:03)
[2018-05-31] MEDS: Multivitamin W/ Minerals 1 TAB PO SCH (08:14)
--- NOTE | 2018-05-31 08:32 | PDOC.FM ---
- Subjective Subjective: Patient seen at bedside this morning sleeping comfortably. Per sitter he did not sleep all night and again became agitated and confused. No new complaints from patient this morning. - Objective MAR Reviewed: Yes Vital Signs & Weight: Vital Signs (12 hours) Temp Pulse Resp BP Pulse Ox 05/31/18 08:00 98.5 F 103 H 20 113/80 92 L 05/31/18 04:00 97.4 F L 92 20 139/71 20 L Weight Weight 74.253 kg Most Recent Monitor Data Heart Rate from ECG 85 NIBP 121/79 NIBP BP-Mean 93 Respiration from ECG 24 SpO2 97 I&O: 05/30/18 05/31/18 06/01/18 06:59 06:59 06:59 Intake Total 650 450 Output Total 4025 1950 Balance -3375 -1500 Result Diagrams: 05/31/18 06:26 05/31/18 06:26 Phys Exam - Physical Examination Constitutional: NAD HEENT: PERRLA, moist MMs Neck: no JVD Respiratory: clear to auscultation bilateral Cardiovascular: RRR, no significant murmur Gastrointestinal: soft, non-tender, no distention Musculoskeletal: no edema Neurological: moves all 4 limbs Psychiatric: normal affect, A&O x 3 Skin: no rash Dx/Plan (1) Pancytopenia Code(s): D61.818 - OTHER PANCYTOPENIA Status: Resolved (2) Encephalopathy acute Code(s): G93.40 - ENCEPHALOPATHY, UNSPECIFIED Status: Chronic (3) NSTEMI (non-ST elevated myocardial infarction) Code(s): I21.4 - NON-ST ELEVATION (NSTEMI) MYOCARDIAL INFARCTION Status: Acute (4) CHF (congestive heart failure) Code(s): I50.9 - HEART FAILURE, UNSPECIFIED Status: Chronic (5) Sepsis Code(s): A41.9 - SEPSIS, UNSPECIFIED ORGANISM Status: Resolved (6) Atrial fibrillation Code(s): I48.91 - UNSPECIFIED ATRIAL FIBRILLATION Status: Chronic (7) CAD (coronary artery disease) Code(s): I25.10 - ATHSCL HEART DISEASE OF [place] CORONARY ARTERY W/O ANG PCTRS Status: Chronic (8) CKD (chronic kidney disease) Code(s): N18.9 - CHRONIC KIDNEY DISEASE, UNSPECIFIED Status: Chronic (9) Diabetes mellitus Code(s): E11.9 - TYPE 2 DIABETES MELLITUS WITHOUT COMPLICATIONS Status: Chronic (10) HTN (hypertension) Code(s): I10 - ESSENTIAL (PRIMARY) HYPERTENSION Status: Chronic (11) Rheumatoid arthritis Code(s): M06.9 - RHEUMATOID ARTHRITIS, UNSPECIFIED Status: Chronic (12) Hypoglycemia Code(s): E16.2 - HYPOGLYCEMIA, UNSPECIFIED Status: Acute (13) Urinary retention Code(s): R33.9 - RETENTION OF URINE, UNSPECIFIED Status: Acute - Plan Plan: Acute on chronic Encephalopathy - currently stable and at apparent baseline - neuro suspects dementia and has no additional management recommendation - case management is working on placement options Urinary retention - Continue gregory for 10 days and fu with urology outpatient per their recommendation - PSA 6.47 Sepsis without a source, resolved Hypotension, resolved Hypogylcemia, resolved NSTEMI 2/2 demand ischemia- - stable known diffuse CAD - Cards following Acute cough, resolved Pancytopenia, resolved - Will hold continue to hold azathioprine - Will hold anticoagulation for now per cards recs, given his advanced dementia anticoagulation may not be appropriate anymore. TERE on CKD stage III - Cr adn urinary output are stable - Follows with [facility] Gregory outpatient for CKD stage 3) CAD s/p 3V CABG - Per cards last cath 6 months ago showed diffuse disease but no surgical intervention done. - Will continue medical management. Rheumatoid arthritis - Aware, will hold azathioprine 2/2 pancytopenia. Diabetes Mellitus - Patient has become hyperglycemic, will increase 70/30 to 14 - ACHS accuchecks - SSI prn Chronic diarrhea - Will consider stool studies. Dispo: Medically stable, placement pending. Addendum - Attending - Attending Attestation Date/Time: 05/31/18 1393 I personally evaluated the patient and discussed the management with Dr. Crouch. I agree with the History, Examination, Assessment and Plan documented above with any addition or exceptions noted below. Dementia with acute delirium- will increase nightly dose of seroquel but pleasant. Appreciate neuro recs. He needs placement in SNF. CAD- severe and non-operable Urinary retention- flomax and gregory for 7-10 days. Hematuria resolved. T2DM- no hypoglycemia- increase insulin slowly. Stable for transfer once placement set up.
--- NOTE | 2018-05-31 15:02 | PDOC.CTH ---
Cardiology Progress Note - Subjective Still confused. - Objective Vital Signs Temp Pulse Resp BP Pulse Ox 05/31/18 10:58 97.6 F 92 18 121/77 93 L 05/31/18 08:00 98.5 F 103 H 20 113/80 92 L 05/31/18 04:00 97.4 F L 92 20 139/71 20 L Weight 163 lb 11.2 oz 05/30/18 05/31/18 06/01/18 06:59 06:59 06:59 Intake Total 650 450 Output Total 4025 1950 Balance -3375 -1500 - Physical Examination General/Neuro: NAD, other: (AOx1) Neck: no JVD present Lungs: CTA, unlabored respirations Heart: RRR Abdomen: NT/ND Extremities: other: (1+) - Labs Result Diagrams: 05/31/18 06:26 05/31/18 06:26 Troponin/CKMB CK-MB (CK-2) 8.7 ng/mL (0-6.6) H* 05/26/18 07:24 Troponin I 7.165 ng/mL (< 0.028) H* 05/26/18 07:24 - Assessment/Plan 1. AMS 2. NSTEMI 3. Severe diffuse CAD. 4. S/P CABG 5. S/P AICD 6. Hx of VT related to ischemic CM and hypokalemia. 7. Acute on chronic TERE. 8. Hematuria, from gregory trauma. PLAN: - LHC in Apr 2016 showed occluded SVG to RCA and occluded SVG to OM. His [place] RCA is occluded and his [place] LCx has a 99% stenosis. His LEE to LAD was patent but landed on a diffusely diseased LAD with severe distal disease. No revascularization options. - Continue to hold anticoagulation due to hematuria now. - CV stable, Not tachycardic anymore. - Will follow from a distance over the weekend.
--- NOTE | 2018-06-01 07:13 | PDOC.FM ---
- Subjective Subjective: Seen at bedside sleeping comfortably. Patient did much better over night last night, did not require Haldol. No acute events. No new complaints - Objective MAR Reviewed: Yes Vital Signs & Weight: Vital Signs (12 hours) Temp Pulse Resp BP Pulse Ox 05/31/18 20:00 98.6 F 100 20 125/86 94 L Weight Weight 74.253 kg Most Recent Monitor Data Heart Rate from ECG 85 NIBP 121/79 NIBP BP-Mean 93 Respiration from ECG 24 SpO2 97 I&O: 05/31/18 06/01/18 06/02/18 06:59 06:59 06:59 Intake Total 450 Output Total 1950 Balance -1500 Result Diagrams: 06/01/18 07:10 06/01/18 07:10 Phys Exam - Physical Examination Constitutional: NAD HEENT: sclera anicteric Neck: no JVD Respiratory: clear to auscultation bilateral Cardiovascular: RRR, no significant murmur Gastrointestinal: soft, non-tender, no distention Musculoskeletal: no edema Neurological: moves all 4 limbs Deviation from normal: A&O x1 Skin: no rash Dx/Plan (1) Pancytopenia Code(s): D61.818 - OTHER PANCYTOPENIA Status: Resolved (2) Encephalopathy acute Code(s): G93.40 - ENCEPHALOPATHY, UNSPECIFIED Status: Chronic (3) NSTEMI (non-ST elevated myocardial infarction) Code(s): I21.4 - NON-ST ELEVATION (NSTEMI) MYOCARDIAL INFARCTION Status: Acute (4) CHF (congestive heart failure) Code(s): I50.9 - HEART FAILURE, UNSPECIFIED Status: Chronic (5) Sepsis Code(s): A41.9 - SEPSIS, UNSPECIFIED ORGANISM Status: Resolved (6) Atrial fibrillation Code(s): I48.91 - UNSPECIFIED ATRIAL FIBRILLATION Status: Chronic (7) CAD (coronary artery disease) Code(s): I25.10 - ATHSCL HEART DISEASE OF [place] CORONARY ARTERY W/O ANG PCTRS Status: Chronic (8) CKD (chronic kidney disease) Code(s): N18.9 - CHRONIC KIDNEY DISEASE, UNSPECIFIED Status: Chronic (9) Diabetes mellitus Code(s): E11.9 - TYPE 2 DIABETES MELLITUS WITHOUT COMPLICATIONS Status: Chronic (10) HTN (hypertension) Code(s): I10 - ESSENTIAL (PRIMARY) HYPERTENSION Status: Chronic (11) Rheumatoid arthritis Code(s): M06.9 - RHEUMATOID ARTHRITIS, UNSPECIFIED Status: Chronic (12) Hypoglycemia Code(s): E16.2 - HYPOGLYCEMIA, UNSPECIFIED Status: Acute (13) Urinary retention Code(s): R33.9 - RETENTION OF URINE, UNSPECIFIED Status: Acute - Plan Plan: Acute on chronic Encephalopathy - currently stable and at apparent baseline - placement pending Urinary retention - Continue gregory for 10 days and fu with urology outpatient per their recommendation - PSA 6.47 Sepsis without a source, resolved Hypotension, resolved Hypogylcemia, resolved NSTEMI 2/2 demand ischemia- - stable known diffuse CAD - Cards following Acute cough, resolved Pancytopenia, resolved - Will hold continue to hold azathioprine - Will hold anticoagulation for now per cards recs, given his advanced dementia anticoagulation may not be appropriate anymore. TERE on CKD stage III - Cr adn urinary output are stable - Follows with [facility] outpatient for CKD stage 3) CAD s/p 3V CABG - Per cards last cath 6 months ago showed diffuse disease but no surgical intervention done. - Will continue medical management. Rheumatoid arthritis - Aware, will hold azathioprine 2/2 pancytopenia. Diabetes Mellitus - Patient has become hyperglycemic, will increase 70/30 to 14 - ACHS accuchecks - SSI prn Chronic diarrhea - Will consider stool studies. Dispo: Medically stable, placement pending. Addendum - Attending - Attending Attestation Date/Time: 06/01/18 4152 I personally evaluated the patient and discussed the management with Dr. Crouch. I agree with the History, Examination, Assessment and Plan documented above with any addition or exceptions noted below. The patient was eating a blueberry muffin this morning and denied complains. TERE improved with creatinine now at 1.66. Waiting on placement for patient.
[2018-06-01 07:51] LABS: Anion Gap 15 mmol/L (10-20); BUN (Urea Nitrogen) 35 mg/dL (8.4-25.7); Calc. Creatinine Clearance 39 mL/min (70-130); Calcium 8.6 mg/dL (7.8-10.44); Carbon Dioxide 25 mmol/L (23-31); Chloride 106 mmol/L (98-107); Estimated GFR-MDRD 40; Glucose 166 mg/dL (83-110); Potassium 3.6 mmol/L (3.5-5.1); Sodium 142 mmol/L (136-145)
[2018-06-01 08:26] LABS: Band 6 % (5-11); Eosinophils 5 % (0-10); Hemoglobin 11.3 g/dL (14.0-18.0); Lymphocytes 30 % (21-51); MDiff Complete? YES; Mean Corpuscular HGB CONC 32.9 g/dL (32.0-36.0); Mean Corpuscular Hemoglobin 36.2 pg (27.0-31.0); Mean Platelet Volume 7.5 fL (7.4-10.4); Monocytes 8 % (0-10); Neutrophil 51 % (42-75); Platelet Count 376 thou/uL (130-400); White Blood Cell (WBC) Count 4.8 thou/uL (4.8-10.8)
[2018-06-01] MEDS: Gabapentin 300 MG CAP PO SCH ×3 (08:26→20:28)
[2018-06-01] MEDS: Potassium Chloride 10 MEQ TAB PO SCH (08:26)
[2018-06-01] MEDS: Furosemide 40 MG TAB PO SCH ×2 (08:26→20:28)
[2018-06-01] MEDS: Aspirin 81 mg Enteric Coated Tablet PO SCH (08:26)
[2018-06-01] MEDS: Fish Oil 1,000 MG CAP PO SCH (08:26)
[2018-06-01] MEDS: Multivitamin W/ Minerals 1 TAB PO SCH (08:26)
[2018-06-01] MEDS: Tamsulosin HCl 0.4 MG CAP PO SCH (08:26)
[2018-06-01] MEDS: predniSONE 5 MG TAB PO SCH (08:26)
[2018-06-01] MEDS: HumuLIN 70/30 (300 UNITS/3 ML VIAL) SC SCH (08:27)
[2018-06-01] MEDS: HumaLOG 300 UNITS/3 ML VIAL SC PRN ×2 (12:34→20:30)
[2018-06-01] MEDS: Melatonin 3 MG TAB PO PRN (20:28)
[2018-06-01] MEDS ORDERED: Haloperidol 1 MG TAB PO SCH (21:45)
--- NOTE | 2018-06-02 06:19 | PDOC.FM ---
- Subjective Subjective: Patient seen at bedside resting comfortably. Over night patient became agitated and required a PRN dose of haldol. Otherwise no acute events over night. No new complaints - Objective MAR Reviewed: Yes Vital Signs & Weight: Vital Signs (12 hours) Temp Pulse Resp BP Pulse Ox 06/01/18 19:42 94 L 06/01/18 19:21 98.7 F 107 H 20 115/73 94 L Weight Weight 74.253 kg Most Recent Monitor Data Heart Rate from ECG 85 NIBP 121/79 NIBP BP-Mean 93 Respiration from ECG 24 SpO2 97 I&O: 05/31/18 06/01/18 06/02/18 06:59 06:59 06:59 Intake Total 450 450 180 Output Total 1950 2000 1900 Balance -1500 -1550 -1720 Result Diagrams: 06/01/18 07:10 06/01/18 07:10 Phys Exam - Physical Examination Constitutional: NAD HEENT: sclera anicteric Neck: no JVD Respiratory: clear to auscultation bilateral Cardiovascular: no significant murmur Gastrointestinal: soft, non-tender, no distention Musculoskeletal: no edema Neurological: moves all 4 limbs Psychiatric: A&O x 3 Skin: no rash Dx/Plan (1) Pancytopenia Code(s): D61.818 - OTHER PANCYTOPENIA Status: Resolved (2) Encephalopathy acute Code(s): G93.40 - ENCEPHALOPATHY, UNSPECIFIED Status: Chronic (3) NSTEMI (non-ST elevated myocardial infarction) Code(s): I21.4 - NON-ST ELEVATION (NSTEMI) MYOCARDIAL INFARCTION Status: Acute (4) CHF (congestive heart failure) Code(s): I50.9 - HEART FAILURE, UNSPECIFIED Status: Chronic (5) Sepsis Code(s): A41.9 - SEPSIS, UNSPECIFIED ORGANISM Status: Resolved (6) Atrial fibrillation Code(s): I48.91 - UNSPECIFIED ATRIAL FIBRILLATION Status: Chronic (7) CAD (coronary artery disease) Code(s): I25.10 - ATHSCL HEART DISEASE OF [place] CORONARY ARTERY W/O ANG PCTRS Status: Chronic (8) CKD (chronic kidney disease) Code(s): N18.9 - CHRONIC KIDNEY DISEASE, UNSPECIFIED Status: Chronic (9) Diabetes mellitus Code(s): E11.9 - TYPE 2 DIABETES MELLITUS WITHOUT COMPLICATIONS Status: Chronic (10) HTN (hypertension) Code(s): I10 - ESSENTIAL (PRIMARY) HYPERTENSION Status: Chronic (11) Rheumatoid arthritis Code(s): M06.9 - RHEUMATOID ARTHRITIS, UNSPECIFIED Status: Chronic (12) Hypoglycemia Code(s): E16.2 - HYPOGLYCEMIA, UNSPECIFIED Status: Acute (13) Urinary retention Code(s): R33.9 - RETENTION OF URINE, UNSPECIFIED Status: Acute - Plan Plan: Acute on chronic Encephalopathy - currently stable and at apparent baseline, placement pending Urinary retention - Continue gregory for 10 days, now day 3, and fu with urology outpatient per their recommendation - PSA 6.47 NSTEMI 2/2 demand ischemia- - stable known diffuse CAD - Cards following Pancytopenia, resolved - Hold azathioprine - Hold anticoagulation for now per cards recs, given his advanced dementia anticoagulation may not be appropriate anymore. TERE on CKD stage III - Cr improving, urinary output are stable - Follows with [facility] outpatient for CKD stage 3) CAD s/p 3V CABG - Per cards last cath 6 months ago showed diffuse disease but no surgical intervention done. - Will continue medical management. Rheumatoid arthritis - Aware, will hold azathioprine 2/2 pancytopenia. Diabetes Mellitus - increase 70/30 to 16 - ACHS accuchecks - SSI prn Chronic diarrhea - Will consider stool studies. Sepsis without a source, resolved Hypotension, resolved Hypogylcemia, resolved Acute cough, resolved Dispo: Medically stable, placement pending. Addendum - Attending - Attending Attestation Date/Time: 06/02/18 0299 I personally evaluated the patient and discussed the management with Dr. Crouch. I agree with the History, Examination, Assessment and Plan documented above with any addition or exceptions noted below. The patient required haldol overnight for agitation. Increasing seroquel dose. Still waiting on placement. Sitter is at bedside.
[2018-06-02] MEDS: Tamsulosin HCl 0.4 MG CAP PO SCH (08:36)
[2018-06-02] MEDS: Multivitamin W/ Minerals 1 TAB PO SCH (08:36)
[2018-06-02] MEDS: predniSONE 5 MG TAB PO SCH (08:36)
[2018-06-02] MEDS: Potassium Chloride 10 MEQ TAB PO SCH (08:36)
[2018-06-02] MEDS: Furosemide 40 MG TAB PO SCH ×2 (08:36→19:36)
[2018-06-02] MEDS: Fish Oil 1,000 MG CAP PO SCH (08:36)
[2018-06-02] MEDS: Gabapentin 300 MG CAP PO SCH ×3 (08:36→19:37)
[2018-06-02] MEDS: Aspirin 81 mg Enteric Coated Tablet PO SCH (08:36)
[2018-06-02] MEDS: HumaLOG 300 UNITS/3 ML VIAL SC PRN ×3 (12:31→19:45)
[2018-06-02] MEDS: Melatonin 3 MG TAB PO PRN (19:36)
[2018-06-03] MEDS: HumuLIN 70/30 (300 UNITS/3 ML VIAL) SC SCH (05:53)
--- NOTE | 2018-06-03 07:30 | PDOC.FM ---
- Subjective Subjective: Seen at bedside resting comfortably. No acute events over night. No new complaints - Objective MAR Reviewed: Yes Vital Signs & Weight: Vital Signs (12 hours) Temp Pulse Resp BP Pulse Ox 06/02/18 19:40 94 L 06/02/18 19:38 98.6 F 102 H 18 117/75 94 L Weight Weight 74.253 kg Most Recent Monitor Data Heart Rate from ECG 85 NIBP 121/79 NIBP BP-Mean 93 Respiration from ECG 24 SpO2 97 I&O: 06/02/18 06/03/18 06/04/18 06:59 06:59 06:59 Intake Total 540 480 Output Total 3200 2350 Balance -2660 -1870 Result Diagrams: 06/01/18 07:10 06/01/18 07:10 Phys Exam - Physical Examination Constitutional: NAD HEENT: moist MMs Neck: no JVD Respiratory: clear to auscultation bilateral Cardiovascular: no significant murmur Gastrointestinal: soft, non-tender Musculoskeletal: no edema Neurological: moves all 4 limbs Deviation from normal: A&O x1 Skin: no rash Dx/Plan (1) Pancytopenia Code(s): D61.818 - OTHER PANCYTOPENIA Status: Resolved (2) Encephalopathy acute Code(s): G93.40 - ENCEPHALOPATHY, UNSPECIFIED Status: Chronic (3) NSTEMI (non-ST elevated myocardial infarction) Code(s): I21.4 - NON-ST ELEVATION (NSTEMI) MYOCARDIAL INFARCTION Status: Acute (4) CHF (congestive heart failure) Code(s): I50.9 - HEART FAILURE, UNSPECIFIED Status: Chronic (5) Sepsis Code(s): A41.9 - SEPSIS, UNSPECIFIED ORGANISM Status: Resolved (6) Atrial fibrillation Code(s): I48.91 - UNSPECIFIED ATRIAL FIBRILLATION Status: Chronic (7) CAD (coronary artery disease) Code(s): I25.10 - ATHSCL HEART DISEASE OF [place] CORONARY ARTERY W/O ANG PCTRS Status: Chronic (8) CKD (chronic kidney disease) Code(s): N18.9 - CHRONIC KIDNEY DISEASE, UNSPECIFIED Status: Chronic (9) Diabetes mellitus Code(s): E11.9 - TYPE 2 DIABETES MELLITUS WITHOUT COMPLICATIONS Status: Chronic (10) HTN (hypertension) Code(s): I10 - ESSENTIAL (PRIMARY) HYPERTENSION Status: Chronic (11) Rheumatoid arthritis Code(s): M06.9 - RHEUMATOID ARTHRITIS, UNSPECIFIED Status: Chronic (12) Hypoglycemia Code(s): E16.2 - HYPOGLYCEMIA, UNSPECIFIED Status: Acute (13) Urinary retention Code(s): R33.9 - RETENTION OF URINE, UNSPECIFIED Status: Acute - Plan Plan: Diabetes Mellitus - did not get 70/30 yesterday, unclear as to why. This resulted in significantly elevated glucose yesterday. Got his insulin this morning and has had significantly better BG since. Continue to monitor. 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 - Will continue medical management. Rheumatoid arthritis - Aware, will hold azathioprine 2/2 pancytopenia. Chronic diarrhea - Will consider stool studies. Sepsis without a source, resolved Hypotension, resolved Hypogylcemia, resolved Acute cough, resolved Dispo: Medically stable, placement pending possible dc today Addendum - Attending - Attending Attestation Date/Time: 06/03/18 7761 I personally evaluated the patient and discussed the management with Dr. Crouch I agree with the History, Examination, Assessment and Plan documented above with any addition or exceptions noted below- Patient without complaints. Still confused at times. A&O x1. Afebrile VSS A/P: 1) NSTEMI - stable; continue current meds. 2) Urinary retention- continue gregory as per urology recommendations. 3) DM- continue current meds. 4) D/C planning- awaiting insurance approval for NH placement.
[2018-06-03] MEDS: Furosemide 40 MG TAB PO SCH ×2 (08:46→19:19)
[2018-06-03] MEDS: Gabapentin 300 MG CAP PO SCH ×2 (08:46→15:14)
[2018-06-03] MEDS: Tamsulosin HCl 0.4 MG CAP PO SCH (08:46)
[2018-06-03] MEDS: Multivitamin W/ Minerals 1 TAB PO SCH (08:46)
[2018-06-03] MEDS: Potassium Chloride 10 MEQ TAB PO SCH (08:46)
[2018-06-03] MEDS: Aspirin 81 mg Enteric Coated Tablet PO SCH (08:46)
[2018-06-03] MEDS: Fish Oil 1,000 MG CAP PO SCH (08:46)
[2018-06-03] MEDS: predniSONE 5 MG TAB PO SCH (08:47)
--- NOTE | 2018-06-03 17:39 | PDOC.CTH ---
Cardiology Progress Note - Subjective No new issues. Remains mildly confused. - Objective Vital Signs Temp Pulse Resp BP Pulse Ox 06/03/18 08:33 98.3 F 100 16 109/57 L 100 06/03/18 08:00 100 Weight 163 lb 11.2 oz 06/02/18 06/03/18 06/04/18 06:59 06:59 06:59 Intake Total 540 480 Output Total 3200 2350 Balance -2660 -1870 - Physical Examination General/Neuro: NAD, other: (AAOx2 only. ) Neck: no JVD present Lungs: CTA, unlabored respirations Heart: other: (Irreg) Abdomen: NT/ND Extremities: other: (no edema) - Labs Result Diagrams: 06/01/18 07:10 06/01/18 07:10 Troponin/CKMB CK-MB (CK-2) 8.7 ng/mL (0-6.6) H* 05/26/18 07:24 Troponin I 7.165 ng/mL (< 0.028) H* 05/26/18 07:24 - Assessment/Plan 1. AMS 2. NSTEMI 3. Severe diffuse CAD. 4. S/P CABG 5. S/P AICD 6. Hx of VT related to ischemic CM and hypokalemia. 7. Acute on chronic TERE. 8. Hematuria, from gregory trauma. PLAN: - Hold Anticoagulation until gregory removed. - Restart Aspirin before discharge - Placement pending. - CV stable.
[2018-06-03] MEDS: HumaLOG 300 UNITS/3 ML VIAL SC PRN (19:18)
[2018-06-03] MEDS: Melatonin 3 MG TAB PO PRN (19:19)
[2018-06-03] MEDS ORDERED: Gabapentin 300 MG CAP PO SCH (21:00)
[2018-06-04] MEDS: HumaLOG 300 UNITS/3 ML VIAL SC PRN (05:41)
[2018-06-04] MEDS: HumuLIN 70/30 (300 UNITS/3 ML VIAL) SC SCH (05:42)
[2018-06-04 07:26] LABS: #Eosinphils 0.1 thou/uL (0.0-0.7); #Lymphocytes 1.1 thou/uL (1.20-3.40); #Monocytes 1.5 thou/uL (0.11-0.59); #Neutrophils 10.2 thou/uL (1.40-6.50); %Basophils 0.2 % (0.0-1.0); %Eosinophils 0.5 % (0.0-10.0); %Lymphocytes 8.3 % (21.0-51.0); %Monocytes 11.4 % (0.0-10.0); %Neutrophils 79.6 % (42.0-75.0); Mean Corpuscular HGB CONC 32.5 g/dL (32.0-36.0); Mean Corpuscular Hemoglobin 35.4 pg (27.0-31.0); Mean Platelet Volume 7.4 fL (7.4-10.4); Platelet Count 430 thou/uL (130-400); RBC Distribution Width 18.7 % (11.5-14.5); White Blood Cell (WBC) Count 12.8 thou/uL (4.8-10.8)
[2018-06-04 07:36] LABS: Anion Gap 18 mmol/L (10-20); BUN (Urea Nitrogen) 33 mg/dL (8.4-25.7); Calc. Creatinine Clearance 31 mL/min (70-130); Calcium 8.4 mg/dL (7.8-10.44); Carbon Dioxide 28 mmol/L (23-31); Chloride 99 mmol/L (98-107); Estimated GFR-MDRD 32; Glucose 193 mg/dL (83-110); Sodium 141 mmol/L (136-145)
[2018-06-04 07:43] VITALS: TEMP 98.9
--- NOTE | 2018-06-04 07:43 | PDOC.FM ---
- Subjective Subjective: Seen at bedside, no acute distress. No events over night. No new complaints - Objective MAR Reviewed: Yes Vital Signs & Weight: Weight Weight 74.253 kg Most Recent Monitor Data Heart Rate from ECG 85 NIBP 121/79 NIBP BP-Mean 93 Respiration from ECG 24 SpO2 97 I&O: 06/03/18 06/04/18 06/05/18 06:59 06:59 06:59 Intake Total 480 Output Total 0990 975 Balance -1870 -975 Result Diagrams: 06/04/18 06:37 06/04/18 06:37 Phys Exam - Physical Examination Constitutional: NAD HEENT: moist MMs Neck: no JVD Respiratory: clear to auscultation bilateral Cardiovascular: RRR, no significant murmur Gastrointestinal: soft, non-tender, no distention Musculoskeletal: no edema Neurological: moves all 4 limbs Deviation from normal: A&O x1 Skin: no rash Dx/Plan (1) Pancytopenia Code(s): D61.818 - OTHER PANCYTOPENIA Status: Resolved (2) Encephalopathy acute Code(s): G93.40 - ENCEPHALOPATHY, UNSPECIFIED Status: Chronic (3) NSTEMI (non-ST elevated myocardial infarction) Code(s): I21.4 - NON-ST ELEVATION (NSTEMI) MYOCARDIAL INFARCTION Status: Acute (4) CHF (congestive heart failure) Code(s): I50.9 - HEART FAILURE, UNSPECIFIED Status: Chronic (5) Sepsis Code(s): A41.9 - SEPSIS, UNSPECIFIED ORGANISM Status: Resolved (6) Atrial fibrillation Code(s): I48.91 - UNSPECIFIED ATRIAL FIBRILLATION Status: Chronic (7) CAD (coronary artery disease) Code(s): I25.10 - ATHSCL HEART DISEASE OF [place] CORONARY ARTERY W/O ANG PCTRS Status: Chronic (8) CKD (chronic kidney disease) Code(s): N18.9 - CHRONIC KIDNEY DISEASE, UNSPECIFIED Status: Chronic (9) Diabetes mellitus Code(s): E11.9 - TYPE 2 DIABETES MELLITUS WITHOUT COMPLICATIONS Status: Chronic (10) HTN (hypertension) Code(s): I10 - ESSENTIAL (PRIMARY) HYPERTENSION Status: Chronic (11) Rheumatoid arthritis Code(s): M06.9 - RHEUMATOID ARTHRITIS, UNSPECIFIED Status: Chronic (12) Hypoglycemia Code(s): E16.2 - HYPOGLYCEMIA, UNSPECIFIED Status: Acute (13) Urinary retention Code(s): R33.9 - RETENTION OF URINE, UNSPECIFIED Status: Acute - Plan Plan: Diabetes Mellitus - Glucose improved during day time, but became elevated in evening. Due to labile nature of glucose, will increase SSI and start evening dose of 70/30 when insulin need is determined. Continue to monitor. - ACHS accuchecks - SSI prn Acute on chronic Encephalopathy - currently stable and at apparent baseline, placement pending Urinary retention - Continue gregory for 10 days, now day 5, and fu with urology outpatient per their recommendation NSTEMI 2/2 demand ischemia- - stable known diffuse CAD - Cards following Pancytopenia, resolved - Hold azathioprine - Hold anticoagulation while gregory in place TERE on CKD stage III - at baseline - Follows with [facility] outpatient for CKD stage 3) CAD s/p 3V CABG - Per cards last cath 6 months ago showed diffuse disease but no surgical intervention done. - Will continue medical management. Rheumatoid arthritis - Aware, will hold azathioprine 2/2 pancytopenia. Chronic diarrhea - Will consider stool studies. Sepsis without a source, resolved Hypotension, resolved Hypogylcemia, resolved Acute cough, resolved Dispo: Medically stable, placement pending possible dc today Addendum - Attending - Attending Attestation Date/Time: 06/04/18 1018 I personally evaluated the patient and discussed the management with Dr. Crouch I agree with the History, Examination, Assessment and Plan documented above with any addition or exceptions noted below - Patient sleeping. Less agitated overnight. Afebrile VSS. A/P: 1) Urinary retention - stable with gregory drainage. Plan for outpatient urology follow-up. 2) Demand ischemia- stable. 3) CAD - known diffuse disease- nonsurgical; continue current meds. 4) D/c planning - awaiting insurance approval for placement
[2018-06-04 07:58] LABS: Band 12 % (5-11); Eosinophils 1 % (0-10); Lymphocytes 9 % (21-51); Monocytes 11 % (0-10); Neutrophil 66 % (42-75); Reactive Lymphocytes 1 % (0-10)
[2018-06-04 07:59] LABS: Macrocytosis MODERATE=16-30 cells (100X) (0-5/hpf); Polychromasia MODERATE = 3-4 cells (100X) (0-2/hpf)
[2018-06-04] MEDS: Potassium Chloride 10 MEQ TAB PO SCH (08:08)
[2018-06-04] MEDS: Aspirin 81 mg Enteric Coated Tablet PO SCH (08:08)
[2018-06-04] MEDS: Tamsulosin HCl 0.4 MG CAP PO SCH (08:08)
[2018-06-04] MEDS: predniSONE 5 MG TAB PO SCH (08:09)
[2018-06-04] MEDS: Fish Oil 1,000 MG CAP PO SCH (08:09)
[2018-06-04] MEDS: Multivitamin W/ Minerals 1 TAB PO SCH (08:09)
[2018-06-04] MEDS: Furosemide 40 MG TAB PO SCH (08:09)
[2018-06-04 11:24] VITALS: BMI 27.2
[2018-06-04 15:22] VITALS: BP 120/73
--- NOTE | 2018-06-05 05:32 | DIS ---
DATE OF ADMISSION: 05/24/2018 DATE OF DISCHARGE: 06/04/2018 ADMITTING ATTENDING: Juancho Peters MD DISCHARGE ATTENDING: Kirsty Sanchez MD RESIDENT: Mariano Crouch DO CONSULTS: 1. Cardiology, Andrade Dos Santos MD. 2. Pulmonology Critical Care, Chilo Cevallos MD. 3. Neurology, Jorge Peralta MD. 4. Urology, Adeel Cruz MD. PROCEDURES: Chest x-ray on 05/24, finding of cardiomegaly and mild pulmonary vascular congestion. CT brain, 05/24 with finding of no intracranial posttraumatic sequelae, and some air attentuation in the soft tissues of the face and scalp consistent with a possible recent IV access or laceration. Chest x-ray on 05/26 with finding of elevated right hemidiaphragm. No lobar consolidation or edema. ADMITTING DIAGNOSES: 1. Encephalopathy. 2. Pancytopenia 3. SIRS SECONDARY DIAGNOSES: 1. Congestive heart failure. 2. Atrial fibrillation. 3. Coronary artery disease. 4. Chronic kidney disease. 5. Diabetes mellitus type 2. 6. Hypertension. 7. Rheumatoid arthritis. DISCHARGE MEDICATIONS: 1. Lasix 40 mg one p.o. b.i.d. 2. Humulin 70/30, 16 units subcu q.a.m. 3. Coreg 25 mg p.o. b.i.d. 4. Gabapentin 300 mg p.o. b.i.d. 5. Potassium chloride 10 mEq p.o. daily. 6. Prednisone 2.5 mg q.a.m. 7. Aspirin 81 mg p.o. daily. 8. Seroquel 50 mg p.o. at bedtime. DISCONTINUED MEDICATIONS: 1. Humulin 70/30, 30 units subcu q.a.m. 2. Eliquis 5 mg p.o. b.i.d. 3. Azathioprine 50 mg p.o. b.i.d. HOSPITAL COURSE: This is a 77-year-old male with history of hypertension, CHF, type 2 diabetes, RA, atrial fibrillation and dementia, who was admitted following worsening weakness, confusion, and hallucinations for 2 weeks' time. The patient was initially treated for suspected sepsis, however, no source could be identified. The patient was placed on broad-spectrum antibiotics until cultures resulted and were negative, both urine and blood. Over the course of hospitalization, the patient's acute symptoms improved somewhat. However, the patient remained A and O x1 throughout the hospitalization. As per further discussion with the patient's , there has been a progressively worsening confusion over the past year and at times the patient would get lost while driving, and has become more and more dependent on care from his . She was concerned that she would no longer be able to care for him in the home setting. While admitted, the patient was found to be in acute urinary retention with multiple times in-and-out catheterization of the patient. However, due to bleeding and nonresolution of the retention, a Puri catheter was placed and Urology was consulted. After being seen by Urology, it was determined the patient should go home with a Puri catheter and follow up in 1 week after a voiding trial. On admission, it was noted that the patient did have elevated troponins. Cardiology was consulted. They determined this to be likely demand ischemia; however, he has known nonoperable coronary artery disease and the patient was monitored by Cardiology the entire time that he was admitted. The patient is chronically on Eliquis for atrial fibrillation. Due to the bleeding into the catheter, Eliquis has been held. It is questionable whether the patient is appropriate to go back on Eliquis due to significant fall risk related to his dementia. This decision to be made in conjunction with primary care provider in the outpatient setting. Regarding the pancytopenia that was present on admission, he was found to have a white count of 2.2, hemoglobin of 9.6, and platelet count of 86 on admission. It was determined that this was likely related to azathioprine. The patient had that medicine held for the remainder of the hospitalization and saw some improvement of the pancytopenia. Again, this medication should likely be held in the future; however, a decision to be made with primary care provider in the outpatient setting. Regarding the patient's diabetes, his blood glucose proved to be quite labile. There was a period of time where glucose would drop down into the mid to high 50s at night. His insulin was titrated back significantly, on the day of discharge he was only receiving 16 units of 70/30. However, the patient did become hyperglycemic in the evening hours. Due to the risk of hypoglycemia, the patient did not have an additional 70/30 dose added in the evening. However, it is recommended that this be continued to be watched in the next couple of days and possibility of evening dose of 70/30 considered in the nursing facility. DISCHARGE INSTRUCTIONS: 1. Location: [facility]. 2. Diet: Heart healthy, low carb. 3. Activity: Ambulation with PT. 4. Follow up: with PCP in 1 week, With Dr Cruz in 5 days Job ID: [id number]
== END 2018-06-04 15:43 | DRG 871 ==
LOC: ERS 17:26 → IMCU/EMU 21:31 → T4-A 05-27 19:57
PROVIDERS: ADMIT Student in an Organized Health Care Education/Training Program; ATTEND Student in an Organized Health Care Education/Training Program
DX: A41.9 Sepsis, unspecified organism (principal); G93.41 Metabolic encephalopathy; I21.A1 Myocardial infarction type 2; D61.811 Other drug-induced pancytopenia; I13.0 Hypertensive heart and chronic kidney disease with heart failure and stage 1 through stage 4 chronic kidney disease, or unspecified chronic kidney disease; I24.8 Other forms of acute ischemic heart disease; I50.22 Chronic systolic (congestive) heart failure; N17.9 Acute kidney failure, unspecified; E11.22 Type 2 diabetes mellitus with diabetic chronic kidney disease; M06.9 Rheumatoid arthritis, unspecified; N18.3 Chronic kidney disease, stage 3 (moderate); R44.1 Visual hallucinations; E11.649 Type 2 diabetes mellitus with hypoglycemia without coma; I48.0 Paroxysmal atrial fibrillation; K52.9 Noninfective gastroenteritis and colitis, unspecified; R31.0 Gross hematuria; R33.9 Retention of urine, unspecified; I25.10 Atherosclerotic heart disease of native coronary artery without angina pectoris; I25.5 Ischemic cardiomyopathy; J06.9 Acute upper respiratory infection, unspecified; Z66 Do not resuscitate; T45.1X5A Adverse effect of antineoplastic and immunosuppressive drugs, initial encounter; Z95.810 Presence of automatic (implantable) cardiac defibrillator; Z95.5 Presence of coronary angioplasty implant and graft; Z79.82 Long term (current) use of aspirin; Z79.4 Long term (current) use of insulin; Z79.52 Long term (current) use of systemic steroids; Z88.2 Allergy status to sulfonamides
CPT/HCPCS: 36415; 36416; 51701; 70450; 71045; 80048; 80053; 80202; 80306; 80307; 81003; 81015; 82140; 82533; 82553; 82607; 82746; 82805; 83036; 83090; 83605; 83880; 83921; 84145; 84153; 84443; 84484; 85025; 85610; 85730; 87040; 87086; 87804; 93005; 93010; 96361; 96365; 96375; J1630; J1815; J1940; J2543; J3370; J7050